=== PATIENT | female | born 1930 | race Caucasian/White ===

== ENCOUNTER 2017-01-30 20:04 | Outpatient (CLI) | payer MEDICARE | END 2017-01-30 20:05 | disposition critical access hospital (66) | DX: R25.1 Tremor, unspecified (principal) | CPT/HCPCS: A0425; A0429 ==

== ENCOUNTER 2017-01-30 20:36 | Emergency (ER) | payer MEDICARE ==
--- NOTE | 2017-01-30 20:59 | ED Physician Documentation ---
History of Present Illness - Stated complaint Stated Complaint: TREMORS - Chief complaint Chief Complaint: General - History obtained from History obtained from: Patient, EMS - History of Present Illness Timing: Other (4 months) Pain level max: 0 Pain level now: 0 Improved by: nothing Worsened by: nothing - Additonal information Additional information: Patient is an 86-year-old female who presents to the emergency department complaining of tremors to the bilateral hands for the past 4 months. States she has not seen her doctor or discuss this with her doctor. She states that the tremors felt worse today. She has also noticed tremors intermittently in her face. No difficulty walking. No falling. No recent medication changes. No pain. Review of Systems Constitutional: denies: Fever, Chills Eyes: denies: Decreased vision, Photophobia Nose: denies: Rhinorrhea / runny nose, Congestion Throat: denies: Sore throat Cardiac: denies: Chest pain / pressure, Palpitations Respiratory: denies: Dyspnea, Cough GI: denies: Abdominal Pain, Nausea, Vomiting, Diarrhea : denies: Dysuria, Frequency, Hesitancy Skin: denies: Rash Musculoskeletal: denies: Neck pain, Back pain Neurologic: denies: Focal weakness, Numbness, Confused, Altered mental status, Headache PD PAST MEDICAL HISTORY - Past Medical History Past Medical History: Yes Cardiovascular: Hypertension, Other Respiratory: COPD Neuro: None Endocrine/Autoimmune: None GI: Diverticulitis MEDIA ASSISTANT: None : Retention HEENT: None Psych: Depression Musculoskeletal: Osteoarthritis Derm: None - Past Surgical History Past Surgical History: Yes General: Appendectomy Ortho: Other /MEDIA ASSISTANT: Hysterectomy HEENT: Tonsil/Adenoidectomy - Present Medications Home Medications: Ambulatory Orders Medication Instructions Recorded Confirmed Atorvastatin [Lipitor] 20 mg PO DAILY 11/10/14 01/30/17 Cranberry 500 mg PO BID 11/10/14 01/30/17 Docusate Sodium 100 mg PO DAILY #20 capsule 11/10/14 01/30/17 Escitalopram [Lexapro] 10 mg PO DAILY 11/10/14 01/30/17 Flaxseed Oil [Flax Seed Oil] 1,300 mg PO DAILY 11/10/14 01/30/17 Glucosamine Sulfate Dipot Chlr 500 mg PO TID 11/10/14 01/30/17 [Glucosamine] Magnesium 500 mg PO DAILY 11/10/14 01/30/17 Niacin 500 mg PO BID 11/10/14 01/30/17 [place]-3 Fatty Acids [Fish Oil] 1,000 mg PO BID 11/10/14 01/30/17 Omeprazole [PriLOSEC] 20 mg PO DAILY 11/10/14 01/30/17 Bethanechol [Urecholine] 25 mg PO QID 02/04/15 01/30/17 Cholecalciferol (Vitamin D3) 1 tab ORAL DAILY 02/04/15 01/30/17 [Vitamin D-400] Cyclobenzaprine [Flexeril] 5 mg PO TID PRN 02/04/15 01/30/17 Diazepam [Valium] 2 mg PO ONCE PRN 02/04/15 01/30/17 HYDROcod/ACETAM 5/325 [Vicodin 1 each PO Q6HR 02/04/15 01/30/17 5/325] Multivit-Min/FA/Lycopene/Lut 1 each PO DAILY 02/04/15 01/30/17 [Centrum Silver Tablet] Saccharomyces Boulardii [Florastor] 250 mg PO BID 02/04/15 01/30/17 Verapamil [Calan] 180 mg PO DAILY 03/09/15 01/30/17 Doxepin HCl 10 mg PO DAILY 09/22/16 01/30/17 Nitroglycerin [Nitrostat] 0.4 mg PO Q5MIN PRN 09/22/16 01/30/17 Verapamil HCl 40 mg PO DAILY 09/22/16 01/30/17 Omeprazole [PriLOSEC] 1 cap PO DAILY 01/30/17 01/30/17 Saccharomyces Boulardii [Florastor] 1 cap PO BID 01/30/17 01/30/17 - Allergies Allergies/Adverse Reactions: Allergies Allergy/AdvReac Type Severity Reaction Status Date / Time Sulfa (Sulfonamide Allergy Severe Anaphylaxis Verified 01/30/17 20:47 Antibiotics) clarithromycin Allergy Unknown Verified 01/30/17 20:47 codeine Allergy Nausea Verified 01/30/17 20:47 levofloxacin Allergy Unknown Verified 01/30/17 20:47 phenazopyridine HCl * Allergy Unknown Verified 01/30/17 20:47 [From Pyridium] - Social History Does the pt smoke?: No Smoking Status: Never smoker Does the pt drink ETOH?: No Does the pt have substance abuse?: No - Immunizations Immunizations are current?: Yes - POLST Patient has POLST: No PD ED PE NORMAL - Vitals Vital signs reviewed: Yes - General General: Alert and oriented X 3, No acute distress, Well developed/nourished - HEENT HEENT: PERRL, Moist mucous membranes - Neck Neck: Supple, no meningeal sign - Cardiac Cardiac: RRR, Strong equal pulses - Respiratory Respiratory: No respiratory distress, Clear bilaterally - Abdomen Abdomen: Soft, Non tender, Non distended - Derm Derm: Warm and dry - Extremities Extremities: No edema - Neuro Neuro: Alert and oriented X 3, fire medic 2-12 intact, No motor deficit, No sensory deficit, Normal speech, Other (Slight resting tremor to the bilateral hands. Also a slight tremor to the face. Normal cerebellar test. Normal gait. Walks without assistance) - Psych Psych: Normal mood, Normal affect Results - Vitals Vitals: Vital Signs - 24 hr 01/30/17 01/30/17 01/30/17 20:37 21:20 21:37 Temperature 36.2 C L Heart Rate 92 84 80 Respiratory 18 16 16 Rate Blood Pressure 216/79 H 189/78 H 185/71 H O2 Saturation 95 96 94 Oxygen O2 Source [With Activity] Room air O2 Source Room air - Labs Labs: Laboratory Tests 01/30/17 01/30/17 21:00 21:00 WBC 6.0 RBC 4.79 Hgb 14.7 Hct 44.1 MCV 92.2 MCH 30.7 MCHC 33.2 RDW 14.5 Plt Count 165 MPV 8.6 Neut # 3.6 Lymph # 1.3 L [place] # 0.9 Eos # 0.1 Baso # 0.1 Absolute Nucleated RBC 0.00 Nucleated RBCs 0.0 Sodium 140 Potassium 3.8 Chloride 99 L Carbon Dioxide 29 Anion Gap 12.0 BUN 20 Creatinine 0.9 Estimated GFR (MDRD) 59 L Glucose 124 H Calcium 9.1 Phosphorus 3.4 Magnesium 2.4 Total Bilirubin 0.5 AST 38 ALT 27 Alkaline Phosphatase 102 Total Protein 7.6 Albumin 4.4 Globulin 3.2 Albumin/Globulin Ratio 1.4 Lipase 43 PD MEDICAL DECISION MAKING - ED course Complexity details: reviewed results, re-evaluated patient, considered differential, d/w patient ED course: Patient is an 86-year-old female who presents to the emergency department with increasing tremors over the past 4 months. The tremor is mild here. No acute laboratory abnormalities. She does also have hypertension for which she takes verapamil. She states that she normally will take an extra verapamil when her blood pressure is over 200, therefore an extra dose of verapamil was given to her here. Etiology of her tremors is unclear, though she does appear to need further neurological workup. Will refer her back to her primary care provider for this. Patient counseled regarding signs and symptoms for which I believe and urgent re-evaluation would be necessary. Patient with good understanding of and agreement to plan and is comfortable going home at this time This document was made in part using voice recognition software. While efforts are made to proofread this document, sound alike and grammatical errors may occur. Departure - Departure Disposition: 01 Home, Self Care Clinical Impression: Tremor Condition: Good Instructions: Essential Tremor ET Follow-Up: JM BARTON [Primary Care Provider] - Within 1 week Comments: The cause of your tremors is unclear tonight. You will need further testing than can performed in the emergency department. Follow up with your doctor for this. Your blood pressure was elevated today on check in to the emergency department. This does not mean that you have hypertension, it is a common phenomenon to check into the emergency department and have elevated blood pressure. I recommend that you see your primary care physician within the week to have it rechecked when you're feeling better. Discharge Date/Time: 01/30/17 20:50
[2017-01-30 21:16] LABS: BASOPHILS # (AUTO) 0.1 10^3/uL (0.0-0.1); EOSINOPHILS # (AUTO) 0.1 10^3/uL (0.0-0.7); EOSINOPHILS % (AUTO) 2.4 %; HCT - HEMATOCRIT 44.1 % (37.0-47.0); HGB - HEMOGLOBIN 14.7 g/dL (12.0-16.0); LYMPHOCYTES # (AUTO) 1.3 10^3/uL (1.5-3.5); LYMPHOCYTES % (AUTO) 21.3 %; MEAN CORPUSCULAR HEMOGLOBIN 30.7 pg (27.0-31.0); MEAN CORPUSCULAR HGB CONC 33.2 g/dL (32.0-36.0); MEAN CORPUSCULAR VOLUME 92.2 fL (81.0-99.0); MEAN PLATELET VOLUME 8.6 fL (7.9-10.8); MONOCYTES # (AUTO) 0.9 10^3/uL (0.0-1.0); MONOCYTES % (AUTO) 14.4 %; NEUTROPHILS # (AUTO) 3.6 10^3/uL (1.5-6.6); NEUTROPHILS % (AUTO) 60.9 %; RED BLOOD COUNT 4.79 10^6/uL (4.20-5.40); RED CELL DISTRIBUTION WIDTH 14.5 % (12.0-15.0)
[2017-01-30] MEDS: VERAPAMIL 80 MG TABLET PO STA (21:25)
[2017-01-30 21:33] LABS: ALBUMIN/GLOBULIN RATIO 1.4 (1.0-2.2); BILIRUBIN,TOTAL 0.5 mg/dL (0.2-1.0); CALCIUM 9.1 mg/dL (8.5-10.3); CREATININE 0.9 mg/dL (0.4-1.0); MAGNESIUM 2.4 mg/dL (1.7-2.8); PHOSPHORUS 3.4 mg/dL (2.5-4.6); POTASSIUM 3.8 mmol/L (3.5-5.0); TOTAL PROTEIN 7.6 g/dL (6.7-8.2)
[2017-01-30 21:38] VITALS: BP 185/71
== END 2017-01-30 20:50 | disposition home or self-care (01) ==
LOC: EDUNIT# → ED 20:36
DX: R25.1 Tremor, unspecified (principal); I10 Essential (primary) hypertension; J44.9 Chronic obstructive pulmonary disease, unspecified; M19.90 Unspecified osteoarthritis, unspecified site; Z87.19 Personal history of other diseases of the digestive system
CPT/HCPCS: 80053; 83690; 83735; 84100; 85025; 99283; 99284

== ENCOUNTER 2017-04-01 15:12 | Outpatient (CLI) | payer MEDICARE ==
--- NOTE | 2017-04-01 17:07 | XRAY Report ---
FOUR VIEW RIGHT KNEE: 04/01/2017 CLINICAL INDICATION: Pain. FINDINGS: AP, lateral, and bilateral oblique views of the right knee demonstrate moderate osteoarthr itis, with chondrocalcinosis. A moderate effusion is present. Multiple ossified bodies are noted in t he suprapatellar bursa and posterior joint space. IMPRESSION: MODERATE OSTEOARTHRITIS, WITH A LARGE JOINT EFFUSION. NO EVIDENCE OF ACUTE FRACTURE. JOB #: [id number] EXT JOB #:[id number]
== END 2017-04-01 15:13 | disposition home or self-care (01) ==
LOC: DI.S 15:12
PROVIDERS: ATTEND Specialist
DX: M17.11 Unilateral primary osteoarthritis, right knee (principal); M25.461 Effusion, right knee

== ENCOUNTER 2017-04-06 14:17 | Outpatient (CLI) | payer MEDICARE ==
--- NOTE | 2017-04-07 10:31 | CT Report ---
CT BRAIN WITHOUT CONTRAST: 04/06/2017 CLINICAL INDICATION: Headache, tremor. TECHNIQUE: Axial CT images of the brain were obtained without intravenous contrast. No previous CT is available for comparison. In accordance with CT protocol optimization, one or more of the following dose reduction techniques w ere utilized for this exam: automated exposure control, adjustment of mA and/or KV based on patient size, or use of iterative reconstructive technique. FINDINGS: The ventricles and sulci demonstrate mild symmetric enlargement, compatible with atrophy. The basilar cisterns are patent. Chronic ischemic changes are seen in the periventricular white mat ter structures. There is no evidence of hemorrhage, mass effect, or midline shift. The visualized o rbital contents and paranasal sinuses are unremarkable. IMPRESSION: ATROPHY AND CHRONIC ISCHEMIC CHANGES. NO EVIDENCE OF ACUTE HEMORRHAGE OR MASS EFFECT. JOB #: [id number] EXT JOB #:[id number]
== END 2017-04-06 14:18 | disposition home or self-care (01) ==
LOC: DI 14:17
PROVIDERS: ATTEND Nurse Practitioner Family
DX: G31.9 Degenerative disease of nervous system, unspecified (principal); I67.82 Cerebral ischemia
CPT/HCPCS: 70450

== ENCOUNTER 2017-04-14 01:57 | Outpatient (CLI) | payer MEDICARE | END 2017-04-14 01:58 | disposition critical access hospital (66) | LOC: EMS 01:57 | PROVIDERS: ATTEND Surgery | DX: R25.1 Tremor, unspecified (principal) | CPT/HCPCS: A0425; A0428 ==

== ENCOUNTER 2017-04-14 02:56 | Emergency (ER) | payer MEDICARE ==
[2017-04-14] MEDS ORDERED: ALPRAZolam 0.25 MG TABLET PO STA (03:18)
[2017-04-14] MEDS ORDERED: ALPRAZolam 0.25 MG TABLET PO ONE (03:23)
[2017-04-14 03:46] LABS: BILIRUBIN,URINE NEGATIVE (NEGATIVE)
[2017-04-14 03:48] LABS: BASOPHILS % (AUTO) 0.7 %; EOSINOPHILS # (AUTO) 0.2 10^3/uL (0.0-0.7); EOSINOPHILS % (AUTO) 2.7 %; HCT - HEMATOCRIT 42.1 % (37.0-47.0); HGB - HEMOGLOBIN 14.7 g/dL (12.0-16.0); LYMPHOCYTES # (AUTO) 1.7 10^3/uL (1.5-3.5); LYMPHOCYTES % (AUTO) 24.8 %; MEAN CORPUSCULAR HEMOGLOBIN 31.8 pg (27.0-31.0); MEAN CORPUSCULAR HGB CONC 34.8 g/dL (32.0-36.0); MEAN CORPUSCULAR VOLUME 91.4 fL (81.0-99.0); MEAN PLATELET VOLUME 7.8 fL (7.9-10.8); MONOCYTES # (AUTO) 0.9 10^3/uL (0.0-1.0); MONOCYTES % (AUTO) 13.2 %; NEUTROPHILS # (AUTO) 3.9 10^3/uL (1.5-6.6); NEUTROPHILS % (AUTO) 58.6 %; RED BLOOD COUNT 4.61 10^6/uL (4.20-5.40); RED CELL DISTRIBUTION WIDTH 13.7 % (12.0-15.0); UNCORRECTED WHITE BLOOD COUNT 6.7 x10^3/uL; WHITE BLOOD COUNT 6.7 x10^3/uL (4.8-10.8)
[2017-04-14 03:48] LABS: UA CHARGE (STRIP ONLY) YES; UR CULTURE IF IND NOT INDICATED
--- NOTE | 2017-04-14 03:54 | ED Physician Documentation ---
History of Present Illness - Stated complaint Stated Complaint: TREMORS - Chief complaint Chief Complaint: General - History obtained from History obtained from: Patient - Additonal information Additional information: Patient is a 87-year-old female with a history of anxiety, depression, COPD, hypertension and tremors. She has had the tremors for many months and was recently put on gabapentin 300 mg 3 times daily. She believes she forgot her gabapentin in the morning but was reticent to take an extra dose because she was unsure. She woke up this evening with a complaint of feeling of anxiousness and shaking all throughout her body. She denies any chest pain or shortness of breath. There is no nausea, vomiting, constipation or diarrhea. She is on Lexapro for her anxiety and depression and was on Valium at some point in the past. Review of systems: For pertinent positive and negatives in the review of systems please see history of present illness. Otherwise all other systems have been reviewed and are negative. Dragon disclaimer: Parts of this medical record were created using voice recognition technology. Because of the inherent limitations of this system occasional same sounding word substitutions do occur and persist despite proofreading. Please read the document for context. Review of Systems Constitutional: denies: Fever, Chills, Myalgias Eyes: denies: Loss of vision Ears: denies: Tinnitus/ringing Cardiac: denies: Pedal edema Respiratory: denies: Dyspnea, Cough, Hemoptysis, Wheezing GI: denies: Abdominal Pain, Nausea, Vomiting Musculoskeletal: denies: Neck pain, Back pain, Extremity pain Neurologic: denies: Generalized weakness, Focal weakness Psychiatric: reports: Anxiety. denies: Depressed, Suicidal, Homicidal PD PAST MEDICAL HISTORY - Past Medical History Cardiovascular: Hypertension, Other Respiratory: COPD Neuro: None Endocrine/Autoimmune: None GI: Diverticulitis HOB GRINDER: None : Retention HEENT: None Psych: Depression Musculoskeletal: Osteoarthritis Derm: None - Past Surgical History Past Surgical History: Yes General: Appendectomy Ortho: Other /HOB GRINDER: Hysterectomy HEENT: Tonsil/Adenoidectomy - Present Medications Home Medications: Ambulatory Orders Medication Instructions Recorded Confirmed Atorvastatin [Lipitor] 20 mg PO DAILY 11/10/14 01/30/17 Cranberry 500 mg PO BID 11/10/14 01/30/17 Docusate Sodium 100 mg PO DAILY #20 capsule 11/10/14 01/30/17 Escitalopram [Lexapro] 10 mg PO DAILY 11/10/14 01/30/17 Flaxseed Oil [Flax Seed Oil] 1,300 mg PO DAILY 11/10/14 01/30/17 Glucosamine Sulfate Dipot Chlr 500 mg PO TID 11/10/14 01/30/17 [Glucosamine] Magnesium 500 mg PO DAILY 11/10/14 01/30/17 Niacin 500 mg PO BID 11/10/14 01/30/17 [place]-3 Fatty Acids [Fish Oil] 1,000 mg PO BID 11/10/14 01/30/17 Omeprazole [PriLOSEC] 20 mg PO DAILY 11/10/14 01/30/17 Bethanechol [Urecholine] 25 mg PO QID 02/04/15 01/30/17 Cholecalciferol (Vitamin D3) 1 tab ORAL DAILY 02/04/15 01/30/17 [Vitamin D-400] Cyclobenzaprine [Flexeril] 5 mg PO TID PRN 02/04/15 01/30/17 Diazepam [Valium] 2 mg PO ONCE PRN 02/04/15 01/30/17 HYDROcod/ACETAM 5/325 [Vicodin 1 each PO Q6HR 02/04/15 01/30/17 5/325] Multivit-Min/FA/Lycopene/Lut 1 each PO DAILY 02/04/15 01/30/17 [Centrum Silver Tablet] Saccharomyces Boulardii [Florastor] 250 mg PO BID 02/04/15 01/30/17 Verapamil [Calan] 180 mg PO DAILY 03/09/15 01/30/17 Doxepin HCl 10 mg PO DAILY 09/22/16 01/30/17 Nitroglycerin [Nitrostat] 0.4 mg PO Q5MIN PRN 09/22/16 01/30/17 Verapamil HCl 40 mg PO DAILY 09/22/16 01/30/17 Omeprazole [PriLOSEC] 1 cap PO DAILY 01/30/17 01/30/17 Saccharomyces Boulardii [Florastor] 1 cap PO BID 01/30/17 01/30/17 Alprazolam [Xanax] 0.25 mg PO TID PRN #10 tablet 04/14/17 Gabapentin 1 tab PO TID 04/14/17 04/14/17 - Allergies Allergies/Adverse Reactions: Allergies Allergy/AdvReac Type Severity Reaction Status Date / Time Sulfa (Sulfonamide Allergy Severe Anaphylaxis Verified 04/14/17 03:04 Antibiotics) clarithromycin Allergy Unknown Verified 04/14/17 03:04 codeine Allergy Nausea Verified 04/14/17 03:04 levofloxacin Allergy Unknown Verified 04/14/17 03:04 phenazopyridine HCl * Allergy Unknown Verified 04/14/17 03:04 [From Pyridium] - Social History Does the pt smoke?: No Smoking Status: Never smoker Does the pt drink ETOH?: No Does the pt have substance abuse?: No - Immunizations Immunizations are current?: Yes - POLST Patient has POLST: No PD ED PE NORMAL - General General: Alert and oriented X 3 (Very anxious appearing tremulous elderly female in no apparent distress), No acute distress, Other - HEENT HEENT: Atraumatic - Neck Neck: Supple, no meningeal sign - Cardiac Cardiac: RRR, No murmur, No gallop - Respiratory Respiratory: No respiratory distress, Clear bilaterally - Abdomen Abdomen: Normal bowel sounds, Non tender, Non distended - Derm Derm: Normal color, Warm and dry - Extremities Extremities: No deformity, No tenderness to palpate, Normal ROM s pain Results - Vitals Vitals: Vital Signs - 24 hr 04/14/17 03:02 Temperature 98 C H Heart Rate 86 Respiratory 16 Rate Blood Pressure 216/89 H O2 Saturation 95 Oxygen O2 Source [With Activity] Room air O2 Source Room air - Labs Labs: Laboratory Tests 04/14/17 04/14/17 04/14/17 03:35 03:39 03:39 WBC 6.7 RBC 4.61 Hgb 14.7 Hct 42.1 MCV 91.4 MCH 31.8 H MCHC 34.8 RDW 13.7 Plt Count 157 MPV 7.8 L Neut # 3.9 Lymph # 1.7 [place] # 0.9 Eos # 0.2 Baso # 0.0 Absolute Nucleated RBC 0.00 Nucleated RBCs 0.0 Sodium 139 Potassium 4.2 Chloride 104 Carbon Dioxide 27 Anion Gap 8.0 BUN 20 Creatinine 0.9 Estimated GFR (MDRD) 59 L Glucose 115 H Calcium 9.1 Total Bilirubin 0.5 AST 35 ALT 30 Alkaline Phosphatase 98 Total Protein 7.2 Albumin 4.2 Globulin 3.0 Albumin/Globulin Ratio 1.4 Lipase 59 H Urine Color YELLOW Urine Clarity CLEAR Urine pH 7.0 Ur Specific [place] 1.010 Urine Protein NEGATIVE Urine Glucose (UA) NEGATIVE Urine Ketones NEGATIVE Urine Occult Blood NEGATIVE Urine Nitrite NEGATIVE Urine Bilirubin NEGATIVE Urine Urobilinogen 0.2 (NORMAL) Ur Leukocyte Esterase NEGATIVE Ur Microscopic Review NOT INDICATED Urine Culture Comments NOT INDICATED PD MEDICAL DECISION MAKING - ED course ED course: Patient is a 87-year-old female with a history of anxiety, depression and tremors who was started on gabapentin a couple months ago. She missed her morning dose and was reticent to take another because she could not quite be sure. She woke up early this morning with a complaint of feeling of anxiety and shakes all over her body. Here the patient appeared very anxious. There is no fever anything infectious by history. On examination she is anxious older woman in no apparent distress. We did do blood testing and urinalysis and the studies are normal. She is given a small dose of Xanax and she improved significantly with a decrease in her blood pressure and pulse rate. At this point in time she looks great her symptoms have largely resolved and I will discharge her to home. I will write for a very small amount of Xanax. Disposition: To home Clinical impression: 1. Acute panic attack 2. History of tremors 3. Hypertension and COPD- stable Departure - Departure Disposition: 01 Home, Self Care Clinical Impression: Anxiety about health Condition: Good Instructions: ED Panic Attack Follow-Up: JM BARTON [Primary Care Provider] - Prescriptions: Alprazolam [Xanax] 0.25 mg PO TID PRN #10 tablet PRN Reason: Anxiety
[2017-04-14 03:57] LABS: ALBUMIN/GLOBULIN RATIO 1.4 (1.0-2.2); BILIRUBIN,TOTAL 0.5 mg/dL (0.2-1.0); CALCIUM 9.1 mg/dL (8.5-10.3); CREATININE 0.9 mg/dL (0.4-1.0); POTASSIUM 4.2 mmol/L (3.5-5.0); TOTAL PROTEIN 7.2 g/dL (6.7-8.2)
[2017-04-14 04:52] VITALS: BP 170/85
== END 2017-04-14 04:52 | disposition home or self-care (01) ==
LOC: EDUNIT# → ED 02:56 → SUPCPDRO 02:56 → ED 04:52
DX: F41.9 Anxiety disorder, unspecified (principal); I10 Essential (primary) hypertension; J44.9 Chronic obstructive pulmonary disease, unspecified
CPT/HCPCS: 36415; 80053; 81003; 83690; 85025; 99283; A9270; 81001; 87086

== ENCOUNTER 2017-04-16 12:50 | Outpatient (CLI) | payer MEDICARE | END 2017-04-16 12:51 | disposition home or self-care (01) | LOC: RT 12:50 | PROVIDERS: ATTEND Internal Medicine Cardiovascular Disease | DX: R00.2 Palpitations (principal); I10 Essential (primary) hypertension | CPT/HCPCS: 93005 ==

== ENCOUNTER 2017-04-24 12:59 | Outpatient (CLI) | payer MEDICARE ==
--- NOTE | 2017-04-27 08:30 | DEXA Report ---
DEXA SCAN: 04/24/2017 CLINICAL INDICATION: Postmenopausal. TECHNIQUE: Dual energy x-ray absorptiometry (DXA) was performed on a opvizor system. Regions measured are the AP spine, femoral neck, and, if needed, forearm. COMPARISON: None. In accordance with the International Society for Clinical Densitometry (ISCD) guidelines, data from previous exams may be reanalyzed using current recommendations and techniques. This is done to allow a more accurate basis for comparison with the current study. FINDINGS: The data for the lumbar spine is as follows: REGION BMD (g/cm/cm) T-SCORE Z-SCORE L1 1.227 0.8 2.8 L2 1.373 1.4 3.4 L3 1.252 0.4 2.4 L4 1.451 2.1 4.1 TOTAL 1.329 1.2 3.2 NOTE: All evaluable vertebrae are used for classification. The data for the hip is as follows: REGION BMD (g/cm/cm) T-SCORE Z-SCORE Neck 0.948 -0.6 1.9 TOTAL 0.996 -0.1 2.3 NOTE: The femoral neck or total proximal femur, whichever is lowest, is used for classification. IMPRESSION: THE WHO CLASSIFICATION BASED ON THE INTERNATIONAL REFERENCE STANDARD IS NORMAL. THE FRACTURE RISK IS NOT INCREASED. RECOMMENDATION: Patients with diagnosis of osteoporosis or osteopenia should have regular bone mineral density assessment. For those eligible for Medicare, routine testing is allowed once every 2 years. Testing frequency can be increased for patients who have rapidly progressing disease or for those who are receiving medical therapy to restore bone mass. COMMENT: World Health Organization (WHO) definitions for osteoporosis and osteopenia: NORMAL BMD: T-score at -1.0 or higher, fracture risk is low. OSTEOPENIA BMD: T-score between -1.0 and -2.5, fracture risk is increased. OSTEOPOROSIS BMD: T-score at -2.5 or lower, fracture risk high. National Osteoporosis Foundation recommends: 1. Obtain adequate dietary calcium (at least 1200 mg per day) and vitamin D (400 -800 international units per day). 2. Participate, as appropriate, in regular weightbearing and muscle- strengthening exercise. 3. Avoid tobacco use and reduce alcohol and caffeine intake. 4. For more detailed information see the website at www.NOF.org. MTDD
== END 2017-04-24 13:00 | disposition home or self-care (01) ==
LOC: DI 12:59
PROVIDERS: ATTEND Specialist
DX: Z13.820 Encounter for screening for osteoporosis (principal); Z78.0 Asymptomatic menopausal state; I10 Essential (primary) hypertension
CPT/HCPCS: 36415; 77080; 80053; 82270; 85025

== ENCOUNTER 2017-04-24 13:07 | Outpatient (CLI) | payer MEDICARE ==
--- NOTE | 2017-04-27 15:26 | Mammography Report ---
DIGITAL SCREENING MAMMOGRAM: 04/24/2017 CLINICAL INDICATION: An 87-year-old nulliparous patient for screening. COMPARISON: 11/2013, 05/2010, 09/2008, 07/2007 TECHNIQUE: Routine CC and MLO projections were obtained of the breasts. FINDINGS: Parenchymal tissue within both breasts is heterogeneously dense, which may lower the sensi tivity of mammography; however, there are no dominant masses, suspicious microcalcifications, or seco ndary signs of malignancy. In comparison to the previous studies, there are no significant changes. ASSESSMENT: NO MAMMOGRAPHIC EVIDENCE OF MALIGNANCY. NO SIGNIFICANT INTERVAL CHANGES. RECOMMENDATION: Screening mammography is recommended annually. BIRADS category 1 - negative. STANDARD QUALIFYING STATEMENTS 1. This examination was reviewed with the aid of Computed-Aided Detection (CAD). 2. A negative or benign imaging report should not delay biopsy if clinically suspicious findings are present. Consider surgical consultation if warranted. More than 5% of cancers are not identified by i maging. 3. Dense breasts may obscure an underlying neoplasm. 15:9:48 JOB #: [id number] EXT JOB #:[id number]
== END 2017-04-24 13:08 | disposition home or self-care (01) ==
LOC: DI 13:07
PROVIDERS: ATTEND Specialist
DX: Z12.31 Encounter for screening mammogram for malignant neoplasm of breast (principal); Z80.3 Family history of malignant neoplasm of breast
CPT/HCPCS: 77067

== ENCOUNTER 2017-04-24 14:15 | Outpatient (CLI) | payer MEDICARE ==
[2017-04-24 15:12] LABS: BASOPHILS % (AUTO) 0.8 %; EOSINOPHILS # (AUTO) 0.1 10^3/uL (0.0-0.7); EOSINOPHILS % (AUTO) 2.2 %; HCT - HEMATOCRIT 41.2 % (37.0-47.0); HGB - HEMOGLOBIN 14.1 g/dL (12.0-16.0); LYMPHOCYTES # (AUTO) 1.1 10^3/uL (1.5-3.5); LYMPHOCYTES % (AUTO) 20.5 %; MEAN CORPUSCULAR HEMOGLOBIN 31.4 pg (27.0-31.0); MEAN CORPUSCULAR HGB CONC 34.3 g/dL (32.0-36.0); MEAN CORPUSCULAR VOLUME 91.5 fL (81.0-99.0); MEAN PLATELET VOLUME 8.4 fL (7.9-10.8); MONOCYTES # (AUTO) 0.6 10^3/uL (0.0-1.0); MONOCYTES % (AUTO) 12.5 %; NEUTROPHILS # (AUTO) 3.3 10^3/uL (1.5-6.6); NUCLEATED RED BLOOD CELLS AUTO 0.1 /100WBC; RED CELL DISTRIBUTION WIDTH 13.7 % (12.0-15.0); UNCORRECTED WHITE BLOOD COUNT 5.2 x10^3/uL; WHITE BLOOD COUNT 5.2 x10^3/uL (4.8-10.8)
[2017-04-24 15:31] LABS: ALBUMIN/GLOBULIN RATIO 1.4 (1.0-2.2); BILIRUBIN,TOTAL 0.8 mg/dL (0.2-1.0); CALCIUM 9.1 mg/dL (8.5-10.3); CREATININE 0.9 mg/dL (0.4-1.0); POTASSIUM 4.2 mmol/L (3.5-5.0)
== END 2017-04-24 14:16 | disposition home or self-care (01) ==
LOC: LAB 14:15
PROVIDERS: ATTEND Specialist
DX: Z12.11 Encounter for screening for malignant neoplasm of colon (principal); I10 Essential (primary) hypertension
CPT/HCPCS: 36415; 80053; 82270; 85025

== ENCOUNTER 2017-04-28 15:20 | Outpatient (CLI) | payer MEDICARE ==
[2017-04-28 19:29] LABS: CALCIUM 9.2 mg/dL (8.5-10.3); CREATININE 0.9 mg/dL (0.4-1.0); MAGNESIUM 2.3 mg/dL (1.7-2.8); POTASSIUM 3.7 mmol/L (3.5-5.0)
== END 2017-04-28 15:21 | disposition home or self-care (01) ==
LOC: LAB.F 15:20
PROVIDERS: ATTEND Internal Medicine Cardiovascular Disease
DX: I49.1 Atrial premature depolarization (principal); I47.1 Supraventricular tachycardia; I10 Essential (primary) hypertension
CPT/HCPCS: 36415; 80048; 83735

== ENCOUNTER 2017-05-20 20:13 | Outpatient (CLI) | payer MEDICARE | END 2017-05-20 20:14 | disposition EMS.NT | LOC: EMS 20:13 | PROVIDERS: ATTEND Surgery | DX: I10 Essential (primary) hypertension (principal) ==

== ENCOUNTER 2017-05-21 20:00 | Outpatient (CLI) | payer MEDICARE | END 2017-05-21 20:01 | disposition critical access hospital (66) | LOC: EMS 20:00 | PROVIDERS: ATTEND Surgery | DX: I10 Essential (primary) hypertension (principal) | CPT/HCPCS: A0425; A0429 ==

== ENCOUNTER 2017-05-21 20:41 | Emergency (ER) | payer MEDICARE ==
--- NOTE | 2017-05-21 20:57 | ED Physician Documentation ---
History of Present Illness - Stated complaint Stated Complaint: HTN - Chief complaint Chief Complaint: Cardiac - History obtained from History obtained from: Patient - History of Present Illness Timing: Other (87-year-old woman with history of hypertension for which she takes verapamil and lisinopril. Over the last several days she has been checking her blood pressures frequently and over the course of the day her blood pressure climbs after the first reading. She says that her usual blood pressure is in the range of 140/80. This is associated with a mild subacute left-sided headache for which she had a CT last month with which without acute finding.) Review of Systems Constitutional: denies: Fever, Chills Cardiac: denies: Chest pain / pressure, Palpitations Respiratory: denies: Dyspnea, Cough GI: denies: Abdominal Pain, Nausea, Vomiting : reports: Frequency. 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 HEENT: None Psych: Depression Musculoskeletal: Osteoarthritis Derm: None - Past Surgical History Past Surgical History: Yes General: Appendectomy Ortho: Other /STORE OPERATIONS ASSOCIATE: Hysterectomy HEENT: Tonsil/Adenoidectomy - Present Medications Home Medications: Ambulatory Orders Medication Instructions Recorded Confirmed Atorvastatin [Lipitor] 20 mg PO DAILY 11/10/14 05/21/17 Cranberry 500 mg PO BID 11/10/14 05/21/17 Escitalopram [Lexapro] 10 mg PO DAILY 11/10/14 05/21/17 Glucosamine Sulfate Dipot Chlr 500 mg PO TID 11/10/14 05/21/17 [Glucosamine] Magnesium 500 mg PO DAILY 11/10/14 05/21/17 Niacin 500 mg PO BID 11/10/14 05/21/17 [place]-3 Fatty Acids [Fish Oil] 1,000 mg PO BID 11/10/14 05/21/17 Cholecalciferol (Vitamin D3) 1 tab ORAL DAILY 02/04/15 05/21/17 [Vitamin D-400] Multivit-Min/FA/Lycopene/Lut 1 each PO DAILY 02/04/15 05/21/17 [Centrum Silver Tablet] Verapamil [Calan] 180 mg PO DAILY 03/09/15 05/21/17 Verapamil HCl 40 mg PO DAILY 09/22/16 05/21/17 Saccharomyces Boulardii [Florastor] 1 cap PO BID 01/30/17 05/21/17 Aspirin 81 mg ORAL DAILY 05/21/17 05/21/17 cloNIDine [Catapres] 0.2 mg PO TID #90 tablet 05/21/17 - Allergies Allergies/Adverse Reactions: Allergies Allergy/AdvReac Type Severity Reaction Status Date / Time Sulfa (Sulfonamide Allergy Severe Anaphylaxis Verified 05/21/17 20:45 Antibiotics) clarithromycin Allergy Unknown Verified 05/21/17 20:45 codeine Allergy Nausea Verified 05/21/17 20:45 levofloxacin Allergy Unknown Verified 05/21/17 20:45 phenazopyridine HCl * Allergy Unknown Verified 05/21/17 20:45 [From Pyridium] - Social History Does the pt smoke?: No Smoking Status: Never smoker Does the pt drink ETOH?: No Does the pt have substance abuse?: No - Immunizations Immunizations are current?: Yes - POLST Patient has POLST: No PD ED PE NORMAL - Vitals Vital signs reviewed: Yes - General General: Alert and oriented X 3, No acute distress - HEENT HEENT: Other (No temporal artery tenderness) - Neck Neck: Supple, no meningeal sign, No bony TTP - Cardiac Cardiac: RRR, No murmur - Respiratory Respiratory: No respiratory distress, Clear bilaterally - Abdomen Abdomen: Non tender - Extremities Extremities: No edema, No calf tenderness / cord - Neuro Neuro: Alert and oriented X 3, 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, No motor deficit, No sensory deficit, Normal speech - Psych Psych: Normal mood, Normal affect Results - Vitals Vitals: Vital Signs - 24 hr 05/21/17 05/21/17 05/21/17 20:41 21:05 21:42 Temperature 36.1 C L Heart Rate 77 79 71 Respiratory 18 18 Rate Blood Pressure 229/88 H 196/83 H 192/75 H O2 Saturation 95 98 Oxygen O2 Source [] Room air O2 Source Room air - EKG (time done) 2056 Rate: Rate (enter#) (74) Rhythm: NSR [place]: Normal Intervals: Normal GA QRS: Normal Ischemia: Q waves (III, V1-3) Computer interpretation: Agree with computer - Labs Labs: Laboratory Tests 05/21/17 05/21/17 05/21/17 20:18 21:08 21:08 Sodium 141 Potassium 3.4 L Chloride 105 Carbon Dioxide 30 Anion Gap 6.0 BUN 14 Creatinine 0.7 Estimated GFR (MDRD) 79 L Glucose 110 H Calcium 9.0 Troponin I < 0.04 Urine Color LIGHT YELLOW Urine Clarity CLEAR Urine pH 7.5 Ur Specific [place] 1.010 Urine Protein NEGATIVE Urine Glucose (UA) NEGATIVE Urine Ketones NEGATIVE Urine Occult Blood TRACE-INTA Urine Nitrite NEGATIVE Urine Bilirubin NEGATIVE Urine Urobilinogen 0.2 (NORMAL) Ur Leukocyte Esterase NEGATIVE Ur Microscopic Review NOT INDICATED Urine Culture Comments NOT INDICATED PD MEDICAL DECISION MAKING - ED course ED course: 87-year-old woman presents with hypertension, no evidence of endorgan damage. There does seem to be an anxiety component about it. I think clonidine would be a good addition as this may help her anxiety as well. She does not drive. Departure - Departure Disposition: 01 Home, Self Care Clinical Impression: Hypertension Qualifiers: Hypertension type: essential hypertension Qualified Code(s): I10 - Essential ( primary) hypertension Condition: Good Record reviewed to determine appropriate education?: Yes Instructions: Hypertension Dc Follow-Up: JM BARTON [Primary Care Provider] - Within 3 Days Prescriptions: cloNIDine [Catapres] 0.2 mg PO TID #90 tablet
[2017-05-21 21:23] LABS: CREATININE 0.7 mg/dL (0.4-1.0); POTASSIUM 3.4 mmol/L (3.5-5.0)
[2017-05-21 21:23] LABS: BILIRUBIN,URINE NEGATIVE (NEGATIVE); PH,URINE 7.5 PH (5.0-7.5)
[2017-05-21 21:24] LABS: UA CHARGE (STRIP ONLY) YES; UR CULTURE IF IND NOT INDICATED
[2017-05-21] MEDS ORDERED: cloNIDine 0.1 MG TABLET PO STA (21:51)
[2017-05-21] MEDS ORDERED: cloNIDine 0.1 MG TABLET ONE (22:01)
[2017-05-21 22:24] VITALS: BP 184/83
== END 2017-05-21 22:45 | disposition home or self-care (01) ==
LOC: EDUNIT# → ED 20:41
DX: I10 Essential (primary) hypertension (principal); F41.9 Anxiety disorder, unspecified; R94.31 Abnormal electrocardiogram [ECG] [EKG]
CPT/HCPCS: 36415; 80048; 81003; 84484; 93005; 99283; A9270; 81001; 87086

== ENCOUNTER 2017-06-25 08:54 | Outpatient (CLI) | payer MEDICARE | END 2017-06-25 08:55 | disposition critical access hospital (66) | LOC: EMS 08:54 | PROVIDERS: ATTEND Surgery | DX: R19.7 Diarrhea, unspecified (principal) | CPT/HCPCS: A0425; A0429 ==

== ENCOUNTER 2017-06-25 09:30 | Emergency (ER) | payer MEDICARE ==
[2017-06-25] MEDS ORDERED: SODIUM CHLORIDE 0.9% 1,000 ML IV ONE (10:16)
--- NOTE | 2017-06-25 10:19 | ED Physician Documentation ---
PD HPI NVD - Stated complaint Stated Complaint: N/D - Chief complaint Chief Complaint: Abd Pain - History obtained from History obtained from: Patient - History of Present Illness Timing - onset: Enter time (399), Today Timing - duration: Hours Timing - details: Abrupt onset, Still present Associated symptoms: Other (diaphoresis, nausea and diarreha) Contributing factors: Bad food Improved by: Laying still Similar symptoms before: Has not had sx before Recently seen: Not recently seen - Additonal information Additional information: 87-year-old female has developed acute diarrhea this morning preceded by some nausea without vomiting. She feels that this is related to eating some grapes that she has growing at her home. She had some grapes a few days ago developed some mild diarrhea following that and then has more grapes yesterday and this developed in the drip pumper. She has been incontinent of stool and diaphoretic. Review of Systems Constitutional: reports: Chills, Sweats. denies: Fever Eyes: denies: Decreased vision Ears: denies: Ear pain Nose: denies: Congestion Throat: denies: Sore throat Cardiac: denies: Chest pain / pressure Respiratory: denies: Cough GI: reports: Nausea, Diarrhea. 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 HEENT: None Psych: Depression Musculoskeletal: Osteoarthritis Derm: None - Past Surgical History Past Surgical History: Yes General: Appendectomy Ortho: Other /PROBATE LAWYER: Hysterectomy HEENT: Tonsil/Adenoidectomy - Present Medications Home Medications: Ambulatory Orders Medication Instructions Recorded Confirmed Atorvastatin [Lipitor] 20 mg PO DAILY 11/10/14 06/25/17 Cranberry 500 mg PO BID 11/10/14 06/25/17 Escitalopram [Lexapro] 10 mg PO DAILY 11/10/14 06/25/17 Glucosamine Sulfate Dipot Chlr 500 mg PO TID 11/10/14 06/25/17 [Glucosamine] Magnesium 500 mg PO DAILY 11/10/14 06/25/17 [place]-3 Fatty Acids [Fish Oil] 1,000 mg PO BID 11/10/14 06/25/17 Cholecalciferol (Vitamin D3) 1 tab ORAL DAILY 02/04/15 06/25/17 [Vitamin D-400] Multivit-Min/FA/Lycopene/Lut 1 each PO DAILY 02/04/15 06/25/17 [Centrum Silver Tablet] Verapamil [Calan] 180 mg PO DAILY 03/09/15 06/25/17 Saccharomyces Boulardii [Florastor] 1 cap PO BID 01/30/17 06/25/17 Aspirin 81 mg ORAL DAILY 05/21/17 06/25/17 cloNIDine [Catapres] 0.2 mg PO TID #90 tablet 05/21/17 06/25/17 Gabapentin 300 mg PO TID 06/25/17 06/25/17 - Allergies Allergies/Adverse Reactions: Allergies Allergy/AdvReac Type Severity Reaction Status Date / Time Sulfa (Sulfonamide Allergy Severe Anaphylaxis Verified 05/21/17 20:45 Antibiotics) clarithromycin Allergy Unknown Verified 05/21/17 20:45 codeine Allergy Nausea Verified 05/21/17 20:45 levofloxacin Allergy Unknown Verified 05/21/17 20:45 phenazopyridine HCl * Allergy Unknown Verified 05/21/17 20:45 [From Pyridium] - Social History Does the pt smoke?: No Smoking Status: Never smoker Does the pt drink ETOH?: No Does the pt have substance abuse?: No - Immunizations Immunizations are current?: Yes - POLST Patient has POLST: No PD ED PE NORMAL - Vitals Vital signs reviewed: Yes (hypertensive) - General General: No acute distress, Well developed/nourished, Other (The patient is diaphoretic) - HEENT HEENT: Atraumatic, PERRL - Neck Neck: Supple, no meningeal sign - Cardiac Cardiac: RRR, No murmur - Respiratory Respiratory: No respiratory distress, Clear bilaterally - Abdomen Abdomen: Soft, Non tender - Back Back: No CVA TTP, No spinal TTP - Derm Derm: Normal color, Warm and dry, No rash - Extremities Extremities: No deformity, No edema - Neuro Neuro: No motor deficit, No sensory deficit - Psych Psych: Normal mood, Normal affect Results - Vitals Vitals: Vital Signs - 24 hr 06/25/17 06/25/17 06/25/17 09:30 11:17 12:40 Temperature 36.5 C 35.9 C L 36.0 C L Heart Rate 68 66 80 Respiratory 18 16 16 Rate Blood Pressure 178/66 H 196/77 H 214/84 H O2 Saturation 99 95 96 06/25/17 06/25/17 14:19 14:23 Temperature 36.1 C L 36.5 C Heart Rate 96 76 Respiratory 12 18 Rate Blood Pressure 208/83 H 197/89 H O2 Saturation 97 96 Oxygen O2 Source [] Room air O2 Source Room air - Labs Labs: Laboratory Tests 06/25/17 06/25/17 06/25/17 10:25 11:00 13:39 WBC 10.0 RBC 4.66 Hgb 14.6 Hct 42.1 MCV 90.4 MCH 31.4 H MCHC 34.7 RDW 13.4 Plt Count 168 MPV 8.4 Neut # 8.1 H Lymph # 0.9 L [place] # 0.9 Eos # 0.1 Baso # 0.1 Absolute Nucleated RBC 0.00 Nucleated RBC % 0.0 Sodium 144 Potassium 3.8 Chloride 104 Carbon Dioxide 27 Anion Gap 13.0 BUN 12 Creatinine 0.7 Estimated GFR (MDRD) 79 L Glucose 135 H Calcium 8.9 Total Bilirubin 0.9 AST 36 ALT 28 Alkaline Phosphatase 109 Troponin I Total Protein 7.6 Albumin 4.3 Globulin 3.3 Albumin/Globulin Ratio 1.3 Lipase 49 Urine Color LIGHT YELLOW Urine Clarity CLEAR Urine pH 6.0 Ur Specific [place] <=1.005 Urine Protein NEGATIVE Urine Glucose (UA) NEGATIVE Urine Ketones NEGATIVE Urine Occult Blood NEGATIVE Urine Nitrite NEGATIVE Urine Bilirubin NEGATIVE Urine Urobilinogen 0.2 (NORMAL) Ur Leukocyte Esterase NEGATIVE Ur Microscopic Review NOT INDICATED Urine Culture Comments NOT INDICATED 06/25/17 13:39 WBC RBC Hgb Hct MCV MCH MCHC RDW Plt Count MPV Neut # Lymph # [place] # Eos # Baso # Absolute Nucleated RBC Nucleated RBC % Sodium Potassium Chloride Carbon Dioxide Anion Gap BUN Creatinine Estimated GFR (MDRD) Glucose Calcium Total Bilirubin AST ALT Alkaline Phosphatase Troponin I < 0.04 Total Protein Albumin Globulin Albumin/Globulin Ratio Lipase Urine Color Urine Clarity Urine pH Ur Specific [place] Urine Protein Urine Glucose (UA) Urine Ketones Urine Occult Blood Urine Nitrite Urine Bilirubin Urine Urobilinogen Ur Leukocyte Esterase Ur Microscopic Review Urine Culture Comments Procedures - IVC sono (time) 1010 Bedside IVC sono: IVC measures (cm) (1.33 (duplicated system)), Dehydration PD MEDICAL DECISION MAKING - ED course Complexity details: reviewed results, re-evaluated patient, considered differential, d/w patient ED course: 87-year-old female with a bout of profuse diarrhea starting early this morning is mildly dehydrated on arrival to the emergency department an IV's saline is begun. She is unable to produce a specimen here in the emergency department her electrolytes are normal and she is rehydrated. Departure - Departure Disposition: 01 Home, Self Care Clinical Impression: Gastroenteritis Condition: Stable Instructions: ED Food Poison Or Gastroenteritis Follow-Up: JM BARTON [Primary Care Provider] - Comments: If your diarrhea returns take some Imodium as directed. Today you were mildly dehydrated and we have rehydrated you. Your electrolytes are normal.
[2017-06-25 10:49] LABS: BASOPHILS # (AUTO) 0.1 10^3/uL (0.0-0.1); EOSINOPHILS # (AUTO) 0.1 10^3/uL (0.0-0.7); EOSINOPHILS % (AUTO) 0.7 %; HCT - HEMATOCRIT 42.1 % (37.0-47.0); HGB - HEMOGLOBIN 14.6 g/dL (12.0-16.0); LYMPHOCYTES # (AUTO) 0.9 10^3/uL (1.5-3.5); LYMPHOCYTES % (AUTO) 8.6 %; MEAN CORPUSCULAR HEMOGLOBIN 31.4 pg (27.0-31.0); MEAN CORPUSCULAR HGB CONC 34.7 g/dL (32.0-36.0); MEAN CORPUSCULAR VOLUME 90.4 fL (81.0-99.0); MEAN PLATELET VOLUME 8.4 fL (7.9-10.8); MONOCYTES # (AUTO) 0.9 10^3/uL (0.0-1.0); MONOCYTES % (AUTO) 8.9 %; NEUTROPHILS # (AUTO) 8.1 10^3/uL (1.5-6.6); NEUTROPHILS % (AUTO) 80.8 %; RED BLOOD COUNT 4.66 10^6/uL (4.20-5.40); RED CELL DISTRIBUTION WIDTH 13.4 % (12.0-15.0)
[2017-06-25 11:51] LABS: BILIRUBIN,URINE NEGATIVE (NEGATIVE)
[2017-06-25 11:53] LABS: UA CHARGE (STRIP ONLY) YES; UR CULTURE IF IND NOT INDICATED
[2017-06-25] MEDS ORDERED: GABAPENTIN 100 MG CAPSULE PO STA (12:27)
[2017-06-25] MEDS ORDERED: GABAPENTIN 300 MG CAPSULE ONE (12:34)
[2017-06-25 14:07] LABS: ALBUMIN/GLOBULIN RATIO 1.3 (1.0-2.2); BILIRUBIN,TOTAL 0.9 mg/dL (0.2-1.0); CALCIUM 8.9 mg/dL (8.5-10.3); CREATININE 0.7 mg/dL (0.4-1.0); POTASSIUM 3.8 mmol/L (3.5-5.0); TOTAL PROTEIN 7.6 g/dL (6.7-8.2)
[2017-06-25 14:23] VITALS: BP 197/89
== END 2017-06-25 15:35 | disposition home or self-care (01) ==
LOC: EDUNIT# → EDBD → ED 09:30
DX: K52.9 Noninfective gastroenteritis and colitis, unspecified (principal); E86.0 Dehydration; I10 Essential (primary) hypertension; Z79.82 Long term (current) use of aspirin
CPT/HCPCS: 36415; 80053; 81003; 83690; 84484; 85025; 96360; 99283; 99284; A9270; 81001; 87045; 87046; 87086

== ENCOUNTER 2017-08-13 13:19 | Outpatient (CLI) | payer MEDICARE ==
--- NOTE | 2017-08-14 10:30 | XRAY Report ---
TWO VIEW CHEST: 08/13/2017 CLINICAL INDICATION: Cough, choking. FINDINGS: Frontal and lateral views of the chest demonstrate a normal cardiac silhouette. A small hi atal hernia is present. The lungs are hyperinflated, compatible with COPD. No focal consolidation, ef fusion, or pneumothorax is present. IMPRESSION: COPD. SMALL HIATAL HERNIA. JOB #: [id number] EXT JOB #:[id number]
== END 2017-08-13 13:20 | disposition home or self-care (01) ==
LOC: DI.S 13:19
PROVIDERS: ATTEND Nurse Practitioner Family
DX: J44.9 Chronic obstructive pulmonary disease, unspecified (principal); K44.9 Diaphragmatic hernia without obstruction or gangrene
CPT/HCPCS: 71020

== ENCOUNTER 2017-09-03 13:18 | Outpatient (CLI) | payer MEDICARE | END 2017-09-03 13:19 | disposition home or self-care (01) | LOC: DI.S 13:18 | PROVIDERS: ATTEND Nurse Practitioner Family | DX: Z53.9 Procedure and treatment not carried out, unspecified reason (principal) ==

== ENCOUNTER 2017-11-19 06:59 | Outpatient (CLI) | payer MEDICARE | END 2017-11-19 07:00 | disposition EMS.NT | LOC: EMS 06:59 | PROVIDERS: ATTEND Surgery | DX: M54.5 Low back pain (principal); R11.0 Nausea ==

== ENCOUNTER 2017-11-20 13:32 | Outpatient (CLI) | payer MEDICARE | END 2017-11-20 13:33 | disposition critical access hospital (66) | LOC: EMS 13:32 | PROVIDERS: ATTEND Surgery | DX: R10.9 Unspecified abdominal pain (principal) | CPT/HCPCS: A0425; A0429 ==

== ENCOUNTER 2017-11-20 14:11 | Emergency (ER) | payer MEDICARE ==
[2017-11-20] MEDS ORDERED: SODIUM CHLORIDE 0.9% 1,000 ML IV ONE (14:22)
[2017-11-20 15:14] LABS: BILIRUBIN,URINE NEGATIVE (NEGATIVE); GLUCOSE, URINE (UA) NEGATIVE (NEGATIVE); KETONES,URINE (UA) NEGATIVE (NEGATIVE); LEUKOCYTE ESTERASE, URINE NEGATIVE (NEGATIVE); NITRITE,URINE NEGATIVE (NEGATIVE); OCCULT BLOOD,URINE NEGATIVE (NEGATIVE); PH,URINE 6.5 PH (5.0-7.5); PROTEIN,URINE NEGATIVE (NEGATIVE); UROBILINOGEN,URINE 0.2 (NORMAL) E.U./dL (NORMAL)
[2017-11-20 15:15] LABS: BASOPHILS % (AUTO) 0.5 %; EOSINOPHILS % (AUTO) 0.4 %; LYMPHOCYTES # (AUTO) 1.3 10^3/uL (1.5-3.5); LYMPHOCYTES % (AUTO) 16.9 %; MEAN CORPUSCULAR HEMOGLOBIN 32.2 pg (27.0-31.0); MEAN CORPUSCULAR HGB CONC 34.6 g/dL (32.0-36.0); MEAN CORPUSCULAR VOLUME 93.1 fL (81.0-99.0); MEAN PLATELET VOLUME 7.9 fL (7.9-10.8); MONOCYTES # (AUTO) 0.9 10^3/uL (0.0-1.0); MONOCYTES % (AUTO) 11.5 %; NEUTROPHILS # (AUTO) 5.5 10^3/uL (1.5-6.6); NEUTROPHILS % (AUTO) 70.7 %; PLT - PLATELET COUNT 178 10^3/uL (130-450); RED BLOOD COUNT 4.34 10^6/uL (4.20-5.40); RED CELL DISTRIBUTION WIDTH 13.7 % (12.0-15.0); WHITE BLOOD COUNT 7.8 x10^3/uL (4.8-10.8)
[2017-11-20 15:16] LABS: CLARITY,URINE CLEAR (CLEAR)
[2017-11-20 15:27] LABS: ALBUMIN 4.4 g/dL (3.2-5.5); ALBUMIN/GLOBULIN RATIO 1.4 (1.0-2.2); CALCIUM 9.1 mg/dL (8.5-10.3); CREATININE 0.9 mg/dL (0.4-1.0); TOTAL PROTEIN 7.5 g/dL (6.7-8.2)
[2017-11-20] MEDS ORDERED: IOPAMIDOL-300 100 ML VIAL ONE (16:14)
[2017-11-20] MEDS ORDERED: IOPAMIDOL-300 100 ML VIAL IVP ONE (16:35)
--- NOTE | 2017-11-20 16:58 | CT Preliminary Report ---
Exam: CT ABDOMEN/PELVIS W/ IMPRESSION: 1. Chronic lung disease. 2. Moderate paraesophageal hernia. 3. Colonic diverticulosis. 4. No radiographic explanation for this lady's presenting symptoms. [facility] SITE ID: [id number]
--- NOTE | 2017-11-20 17:06 | CT Report ---
EXAM: CT ABDOMEN AND PELVIS EXAM DATE: 11/20/2017 04:36 PM. CLINICAL HISTORY: Chronic left lower quadrant pain. COMPARISONS: 11/10/2014. TECHNIQUE: Routine helical CT imaging was performed through the abdomen and pelvis. IV contrast: 100 mL Isovue-300. Enteric contrast: No. Reconstructions: Coronal and sagittal. In accordance with CT protocol optimization, one or more of the following dose reduction techniques w ere utilized for this exam: automated exposure control, adjustment of mA and/or KV based on patient s ize, or use of iterative reconstructive technique. FINDINGS: Lung Bases: Chronic lung disease. Subsegmental bronchiectasis in the left anterior lung base. New mod erate paraesophageal hernia. Liver: Normal. No masses. Gallbladder/Bile Ducts: Unremarkable. Spleen: Normal. Pancreas: Normal. Adrenal Glands: Normal. Kidneys: Normal. 2 cm cyst in the right kidney. No masses or hydronephrosis. Peritoneal Cavity/Bowel: Diverticula off the colon. No free fluid, free air or adenopathy. No masses or acute inflammatory process. Appendix not visualized but no inflammatory changes adjacent to the cecum. Pelvic Organs: Remote hysterectomy. No stones in the urinary bladder, free fluid nor adnexal mass les ions. Vasculature: No aneurysms or other significant abnormality. Bones: Multilevel marked degenerative changes throughout the spine. Other: None. IMPRESSION: 1. Chronic lung disease. 2. Moderate paraesophageal hernia. 3. Colonic diverticulosis. 4. No radiographic explanation for this lady's presenting symptoms. [facility] Referring Provider Line: [phone] SITE ID: [id number]
--- NOTE | 2017-11-20 17:55 | ED Physician Documentation ---
PD HPI ABD PAIN - Stated complaint Stated Complaint: LLQ PAIN - Chief complaint Chief Complaint: Abd Pain - History obtained from History obtained from: Patient, EMS - History of Present Illness Timing - duration: Months (2 months or longer.) Timing - details: Now resolved, Waxing and waning Quality: Pain Location: LLQ Worsened by: Moving Associated symptoms: No: Fever, Nausea, Vomiting, Diarrhea, Dysuria - Additional information Additional information: The patient is an 87-year-old female who presents via ambulance complaining of left lower quadrant abdominal pain. She has experienced similar pain intermittently for the past 2 months or longer. The pain is worse with walking. She denies associated nausea, vomiting, diarrhea, fever, or dysuria. Her last bowel movement was this morning, but it was "weird." Her pain has resolved prior to arrival in the emergency department. Past medical history is significant for diverticulitis. Surgical history is significant for appendectomy and hysterectomy. Review of Systems Constitutional: denies: Fever Nose: denies: Congestion Throat: denies: Sore throat Cardiac: denies: Chest pain / pressure Respiratory: denies: Dyspnea, Cough GI: reports: Abdominal Pain. denies: Nausea, Vomiting, Diarrhea : denies: Dysuria Skin: denies: Rash Musculoskeletal: reports: Back pain (Chronic, mild low back pain.). 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 HEENT: None Psych: Depression Musculoskeletal: Osteoarthritis Derm: None - Past Surgical History Past Surgical History: Yes General: Appendectomy Ortho: Other /BEAD BUILDER: Hysterectomy HEENT: Tonsil/Adenoidectomy - Present Medications Home Medications: Ambulatory Orders Medication Instructions Recorded Confirmed Atorvastatin [Lipitor] 20 mg PO DAILY 11/10/14 06/25/17 Cranberry 500 mg PO BID 11/10/14 06/25/17 Escitalopram [Lexapro] 10 mg PO DAILY 11/10/14 06/25/17 Glucosamine Sulfate Dipot Chlr 500 mg PO TID 11/10/14 06/25/17 [Glucosamine] Magnesium 500 mg PO DAILY 11/10/14 06/25/17 [place]-3 Fatty Acids [Fish Oil] 1,000 mg PO BID 11/10/14 06/25/17 Cholecalciferol (Vitamin D3) 1 tab ORAL DAILY 02/04/15 06/25/17 [Vitamin D-400] Multivit-Min/FA/Lycopene/Lut 1 each PO DAILY 02/04/15 06/25/17 [Centrum Silver Tablet] Verapamil [Calan] 180 mg PO DAILY 03/09/15 06/25/17 Saccharomyces Boulardii [Florastor] 1 cap PO BID 01/30/17 06/25/17 Aspirin 81 mg ORAL DAILY 05/21/17 06/25/17 cloNIDine [Catapres] 0.2 mg PO TID #90 tablet 05/21/17 06/25/17 Gabapentin 300 mg PO TID 06/25/17 06/25/17 Promethazine [Phenergan] 25 - 50 mg PO Q6H PRN #10 tab 11/20/17 - Allergies Allergies/Adverse Reactions: Allergies Allergy/AdvReac Type Severity Reaction Status Date / Time Sulfa (Sulfonamide Allergy Severe Anaphylaxis Verified 05/21/17 20:45 Antibiotics) clarithromycin Allergy Unknown Verified 05/21/17 20:45 codeine Allergy Nausea Verified 05/21/17 20:45 levofloxacin Allergy Unknown Verified 05/21/17 20:45 phenazopyridine HCl * Allergy Unknown Verified 11/20/17 14:14 [From Pyridium] - Social History Does the pt smoke?: No Smoking Status: Never smoker Does the pt drink ETOH?: No Does the pt have substance abuse?: No - Immunizations Immunizations are current?: Yes - POLST Patient has POLST: No PD ED PE NORMAL - Vitals Vital signs reviewed: Yes (Systolic hypertension.) - General General: Alert and oriented X 3, Well developed/nourished - HEENT HEENT: Atraumatic, EOMI, Moist mucous membranes, Pharynx benign - Neck Neck: No adenopathy, No JVD - Cardiac Cardiac: RRR - Respiratory Respiratory: No respiratory distress, Clear bilaterally - Abdomen Abdomen: Normal bowel sounds, Soft, Non tender - Back Back: No CVA TTP, No spinal TTP - Derm Derm: No rash - Extremities Extremities: No edema, No calf tenderness / cord - Neuro Neuro: Alert and oriented X 3, No motor deficit, Normal speech Results - Vitals Vitals: Oxygen O2 Source [] Room air O2 Source Room air - Labs Labs: Laboratory Tests 11/20/17 11/20/17 11/20/17 15:00 15:00 15:00 WBC 7.8 RBC 4.34 Hgb 14.0 Hct 40.4 MCV 93.1 MCH 32.2 H MCHC 34.6 RDW 13.7 Plt Count 178 MPV 7.9 Neut # 5.5 Lymph # 1.3 L [place] # 0.9 Eos # 0.0 Baso # 0.0 Absolute Nucleated RBC 0.00 Nucleated RBC % 0.0 Sodium 135 Potassium 3.8 Chloride 98 L Carbon Dioxide 26 Anion Gap 11.0 BUN 15 Creatinine 0.9 Estimated GFR (MDRD) 59 L Glucose 93 Calcium 9.1 Total Bilirubin 1.0 AST 31 ALT 22 Alkaline Phosphatase 97 Total Protein 7.5 Albumin 4.4 Globulin 3.1 Albumin/Globulin Ratio 1.4 Lipase 27 Urine Color YELLOW Urine Clarity CLEAR Urine pH 6.5 Ur Specific [place] <=1.005 Urine Protein NEGATIVE Urine Glucose (UA) NEGATIVE Urine Ketones NEGATIVE Urine Occult Blood NEGATIVE Urine Nitrite NEGATIVE Urine Bilirubin NEGATIVE Urine Urobilinogen 0.2 (NORMAL) Ur Leukocyte Esterase NEGATIVE Ur Microscopic Review NOT INDICATED Urine Culture Comments NOT INDICATED - Rads (name of study) CT abd/pelvis Radiology: Prelim report reviewed, EMP read contemporaneously, See rad report (1 ) Chronic lung disease. 2) Moderate paraesophageal hernia. 3)Colonic diverticulosis. 4) No radiographic explanation for this lady's presenting symptoms.) PD MEDICAL DECISION MAKING - ED course Complexity details: reviewed results, re-evaluated patient, considered differential, d/w patient ED course: The underlying cause for the patient's intermittent left lower quadrant abdominal pain is unclear at this time. There is no clinical evidence of diverticulitis, and her CBC is normal, with a white count of 7.8, chemistry is normal, urinalysis is normal, and CT scan with IV contrast reveals no radiographic evidence to explain her symptoms. Her presentation does not suggest abdominal aortic aneurysm, kidney stone, or bowel obstruction. On repeated examinations, her abdomen remains benign. Adhesions from previous abdominal surgery is a consideration, but is by no means evident at this time. I discussed with her the results of her workup, outpatient follow-up, as well as potentially worrisome signs or symptoms that should prompt reevaluation in the emergency department. Departure - Departure Disposition: 01 Home, Self Care Clinical Impression: Abdominal pain Qualifiers: Abdominal location: left lower quadrant Qualified Code(s): R10.32 - Left lower quadrant pain Condition: Stable Instructions: ED Abdominal Pain Unkn Cause Follow-Up: Christine Varma ARNP [Physician No Access] - Prescriptions: Promethazine [Phenergan] 25 - 50 mg PO Q6H PRN #10 tab PRN Reason: Nausea / Vomiting Comments: Drink plenty of fluids. You can use Aleve if needed for recurrent pain. You can use Phenergan as prescribed if needed for nausea. Follow up with your primary physician within 1-2 weeks. Call to schedule appointment. Return to the emergency department if you develop increasing abdominal pain, persistent vomiting, or otherwise worsening symptoms. Discharge Date/Time: 11/20/17 18:23
[2017-11-20 18:22] VITALS: BP 145/84
== END 2017-11-20 18:23 | disposition home or self-care (01) ==
LOC: EDUNIT# → ED 14:11
DX: R10.32 Left lower quadrant pain (principal); I10 Essential (primary) hypertension
CPT/HCPCS: 36415; 74177; 80053; 81003; 83690; 85025; 99284; Q9967; 81001; 87086

== ENCOUNTER 2017-11-26 14:18 | Outpatient (CLI) | payer MEDICARE ==
--- NOTE | 2017-11-27 15:41 | MRI Report ---
EXAM: MRI LUMBAR SPINE WITHOUT CONTRAST EXAM DATE: 11/26/2017 03:53 PM. CLINICAL HISTORY: Lower back, abdominal pain x 2 months. Chronic low back pain, worse on the left bethany e. COMPARISON: CT scan of the abdomen and pelvis 11/20/2017. MRI of the lumbar spine 08/08/2011. TECHNIQUE: Multiplanar, multisequence T1-weighted and fluid-sensitive sequences of the lumbar spine f rom T12 to S1 without contrast. Other: None. FINDINGS: Spinal Cord: The conus terminates at L1-L2. The conus medullaris is unremarkable. Crowding of cauda e quina nerve roots is seen in the upper and lower lumbar thecal sac. Curvilinear appearance to cauda e quina nerve roots is seen in the mid lumbar thecal sac. This has progressed compared to prior study. Alignment: Grade 1, 5 mm, spondylolisthesis is seen at L4-L5. Minimal, 2.5 mm, spondylolisthesis is s een at L3-L4. Bone Marrow: Five [id number] lumbar vertebral bodies are assumed. There has been interval marked progression of diskogenic endplate irregularity and signal abnormality predominating at L3-L4 and L4 -L5. Interval development of a 9 mm Schmorl's node is seen in the L2 superior endplate. Bone marrow e vinnie is seen in the L4 left pedicle consistent with reaction to adjacent degenerative change. Disk Levels/Facets: T11-T12: Evaluated on sagittal series. Mild right-sided degenerative facet change. Mild loss of disk space height. Minimal dorsal subligamentous disk protrusion. Mild anterior and right lateral protrusi on of disk/osteophyte complex. No stenosis. T12-L1: Unremarkable. L1-L2: Moderate degenerative facet change is seen. Thickening of the ligamentum flavum is noted. Mode rate loss of disk space height is seen. Diskogenic endplate irregularity is seen. Mild dorsal with mo derate lateral and ventral circumferential protrusion of disk/osteophyte complex. This has progressed . Effacement of the thecal sac is noted with mild canal stenosis. Effacement of exiting right L1 nerv e root is seen with moderate foraminal stenosis. L2-L3: Mild degenerative facet change is seen. Minimal dorsal disk bulge. No stenosis. L3-L4: Moderate to marked hypertrophic degenerative facet change is seen. Fluid is seen in the facet joints. Thickening of the ligamentum flavum. Minimal spondylolisthesis. Moderate loss of disk space h eight. Vacuum cleft phenomenon and T2 hypointense disk signal is present. Moderately extensive diskog enic endplate irregularity and Modic type I signal change is seen. Mild to moderate circumferential d isk bulge is seen. Lobular dorsal superior disk extrusion is seen behind the L3 inferior endplate. Ef facement and crowding of the thecal sac and cauda equina nerve roots is seen with marked canal stenos is. Effacement of descending L4 nerve roots is noted. Moderate right lateral recess stenosis. Marked left lateral recess stenosis. Effacement of exiting L3 nerve roots is seen bilaterally with moderate foraminal stenosis. L4-L5: Marked hypertrophic degenerative facet change is seen. Fluid is seen in the facet joints. Clinton ed thickening of the ligamentum flavum is seen. Grade 1 spondylolisthesis is present. Moderate loss o f disk space height. Vacuum cleft phenomenon and T2 hypointense disk signal. Moderate to marked disko genic endplate irregularity and signal abnormality. Mild dorsal with moderate lateral and ventral cir cumferential disk protrusion. Superior extrusion behind the L4 inferior endplate is seen. Marked effa cement of the thecal sac and descending L5 nerve roots is seen. Marked canal and lateral recess steno sis is present. Effacement of exiting L4 nerve roots is seen bilaterally. Mild right foraminal stenos is. Marked left foraminal stenosis. L5-S1: Mild degenerative facet change. Marked loss of disk space height. Mild endplate irregularity i s seen. Mild circumferential disk protrusion is seen. Effacement of the proximal descending left S1 n erve root is seen with mild lateral recess stenosis. Effacement of exiting L5 nerve roots is seen lat erally in the foramen bilaterally. Moderate right foraminal stenosis. Mild left foraminal stenosis. Musculature: Mild fatty atrophy of posterior paraspinous musculature is seen in the lower lumbar and sacral region. Other: The partially visualized retroperitoneum is unremarkable. 17 mm cyst is partially visualized p osterolaterally in the right kidney. IMPRESSION: 1. Progression of marked hypertrophic degenerative change in the mid and lower lumbar spine as noted above. Progression of diskogenic endplate irregularity and bone marrow edema is seen especially at L4 . 2. L5-S1: Right moderate foraminal stenosis. Left mild foraminal and mild lateral recess stenosis. 3. L4-L5: Grade 1 spondylotic spondylolisthesis. Marked canal stenosis. Right mild foraminal and clinton ed lateral recess stenosis. Left marked foraminal and lateral recess stenosis. 4. L3-L4: Minimal spondylotic spondylolisthesis. Marked canal stenosis. Right moderate foraminal and lateral recess stenosis. Left moderate foraminal and marked lateral recess stenosis. 5. L1-L2: Mild canal stenosis. Right moderate foraminal stenosis. Comment: The following findings are so common in adults without low back pain that while we report th eir presence, they must be interpreted with caution and in the context of the clinical situation. (Re francisco Mcdonald et al, Spine 2001) Prevalence of findings in patients without low back pain: Disk degeneration (any evidence): 92% Disk desiccation/T2 signal loss: 83% Disk height loss: 56% Disk bulge: 64% Disk protrusion: 32% Annular tear/high intensity zone: 38% [facility] Referring Provider Line: [phone] SITE ID: [id number]
== END 2017-11-26 14:19 | disposition home or self-care (01) ==
LOC: DI 14:18
PROVIDERS: ATTEND Nurse Practitioner Family
DX: M51.36 Other intervertebral disc degeneration, lumbar region (principal); M47.896 Other spondylosis, lumbar region; M51.26 Other intervertebral disc displacement, lumbar region; M43.16 Spondylolisthesis, lumbar region; M47.897 Other spondylosis, lumbosacral region; M51.27 Other intervertebral disc displacement, lumbosacral region; M51.37 Other intervertebral disc degeneration, lumbosacral region; M47.894 Other spondylosis, thoracic region; M51.24 Other intervertebral disc displacement, thoracic region
CPT/HCPCS: 72148

== ENCOUNTER 2017-12-03 15:44 | Outpatient (CLI) | payer MEDICARE | END 2017-12-03 15:45 | disposition critical access hospital (66) | LOC: EMS 15:44 | PROVIDERS: ATTEND Surgery | DX: M54.9 Dorsalgia, unspecified (principal) | CPT/HCPCS: A0425; A0429 ==

== ENCOUNTER 2017-12-03 16:24 | Emergency (ER) | payer MEDICARE ==
[2017-12-03] MEDS ORDERED: DEXAMETHASONE 10 MG/ML VIAL IVP STA (16:44)
[2017-12-03] MEDS ORDERED: HYDROmorphone 1 MG/ML SYRINGE IVP STA (16:44)
[2017-12-03] MEDS ORDERED: ONDANSETRON 4 MG/2 ML VIAL IVP STA (16:44)
--- NOTE | 2017-12-03 16:47 | ED Physician Documentation ---
PD HPI BACK PAIN - Stated complaint Stated Complaint: LOW BACK PX - Chief complaint Chief Complaint: Back Pain - History obtained from History obtained from: Patient, EMS - History of Present Illness Timing - onset: Other (87-year-old woman who at the age of 30 had some sort of lumbar spinal surgery. She was doing well since then until about 2 months ago when she would have R when she started to develop severe low back pain radiating especially the left but now to both sides. She has been on oxycodone and gabapentin. The oxycodone is helpful but makes her sick. She had an MRI a week ago. 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 HEENT: None Psych: Depression Musculoskeletal: Osteoarthritis Derm: None - Past Surgical History Past Surgical History: Yes General: Appendectomy Ortho: Other /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 REFUELING HANDLER: Hysterectomy HEENT: Tonsil/Adenoidectomy - Present Medications Home Medications: Ambulatory Orders Medication Instructions Recorded Confirmed Atorvastatin [Lipitor] 20 mg PO DAILY 11/10/14 06/25/17 Cranberry 500 mg PO BID 11/10/14 06/25/17 Escitalopram [Lexapro] 10 mg PO DAILY 11/10/14 06/25/17 Glucosamine Sulfate Dipot Chlr 500 mg PO TID 11/10/14 06/25/17 [Glucosamine] Magnesium 500 mg PO DAILY 11/10/14 06/25/17 [place]-3 Fatty Acids [Fish Oil] 1,000 mg PO BID 11/10/14 06/25/17 Cholecalciferol (Vitamin D3) 1 tab ORAL DAILY 02/04/15 06/25/17 [Vitamin D-400] Multivit-Min/FA/Lycopene/Lut 1 each PO DAILY 02/04/15 06/25/17 [Centrum Silver Tablet] Verapamil [Calan] 180 mg PO DAILY 03/09/15 06/25/17 Saccharomyces Boulardii [Florastor] 1 cap PO BID 01/30/17 06/25/17 Aspirin 81 mg ORAL DAILY 05/21/17 06/25/17 Gabapentin 300 mg PO TID 06/25/17 06/25/17 Promethazine [Phenergan] 25 - 50 mg PO Q6H PRN #10 tab 11/20/17 Cyclobenzaprine HCl 1 tab PO DAILY PRN 12/03/17 12/03/17 Lisinopril 1 tab PO DAILY 12/03/17 12/03/17 cloNIDine [Catapres] 0.1 mg PO TID 12/03/17 - Allergies Allergies/Adverse Reactions: Allergies Allergy/AdvReac Type Severity Reaction Status Date / Time Sulfa (Sulfonamide Allergy Severe Anaphylaxis Verified 05/21/17 20:45 Antibiotics) clarithromycin Allergy Unknown Verified 05/21/17 20:45 codeine Allergy Nausea Verified 05/21/17 20:45 levofloxacin Allergy Unknown Verified 05/21/17 20:45 phenazopyridine HCl * Allergy Unknown Verified 11/20/17 14:14 [From Pyridium] - Social History Does the pt smoke?: No Smoking Status: Never smoker Does the pt drink ETOH?: No Does the pt have substance abuse?: No - Family History Family history: reports: Non contributory - Immunizations Immunizations are current?: Yes - POLST Patient has POLST: No PD ED PE NORMAL - Vitals Vital signs reviewed: Yes - General General: Alert and oriented X 3, No acute distress - HEENT HEENT: PERRL, EOMI - Neck Neck: Supple, no meningeal sign, No bony TTP - Cardiac Cardiac: RRR, No murmur - Respiratory Respiratory: No respiratory distress, Clear bilaterally - Abdomen Abdomen: Normal bowel sounds, Soft, Non tender - Back Back: No spinal TTP - Derm Derm: Normal color, Warm and dry - Extremities Extremities: Other (I am unable to elicit really any reflexes on either side, either Achilles or patellar. But she does have good strength in flexion and extension of the ankles and knees on both sides, so I suspect this is age- related. She does have slightly diminished sensation on the left foot, both sides compared to the right, but above the ankle her sensation is symmetric.) - Neuro Neuro: Alert and oriented X 3, Normal speech - Psych Psych: Normal mood, Normal affect Results - Vitals Vitals: Vital Signs - 24 hr 12/03/17 12/03/17 12/03/17 16:28 18:30 20:09 Temperature 36.2 C L 36.8 C Heart Rate 102 H 90 99 Respiratory 19 16 16 Rate Blood Pressure 157/92 H 137/51 H 193/76 H O2 Saturation 94 92 98 12/03/17 12/03/17 21:39 22:29 Temperature Heart Rate 92 99 Respiratory 16 16 Rate Blood Pressure 156/58 H 195/72 H O2 Saturation 98 99 Oxygen O2 Source [With Activity] Room air O2 Source Room air - Labs Labs: Laboratory Tests 12/03/17 12/03/17 12/03/17 17:09 17:41 17:42 WBC 11.4 H RBC 4.76 Hgb 14.9 Hct 44.3 MCV 93.0 MCH 31.2 H MCHC 33.6 RDW 13.8 Plt Count 251 MPV 8.3 Neut # 8.8 H Lymph # 1.3 L Levy # 1.0 Eos # 0.1 Baso # 0.1 Absolute Nucleated RBC 0.02 Nucleated RBC % 0.1 ESR Sodium 132 L Potassium 4.8 Chloride 97 L Carbon Dioxide 25 Anion Gap 10.0 BUN 22 H Creatinine 0.9 Estimated GFR (MDRD) 59 L Glucose 118 H Calcium 9.9 Total Bilirubin 0.8 AST 31 ALT 29 Alkaline Phosphatase 101 C-Reactive Protein < 1.0 Total Protein 7.1 Albumin 4.3 Globulin 2.8 Albumin/Globulin Ratio 1.5 Lipase 48 Urine Color Urine Clarity Urine pH Ur Specific [place] Urine Protein Urine Glucose (UA) Urine Ketones Urine Occult Blood Urine Nitrite Urine Bilirubin Urine Urobilinogen Ur Leukocyte Esterase Ur Microscopic Review Urine Culture Comments 12/03/17 12/03/17 21:56 22:31 WBC RBC Hgb Hct MCV MCH MCHC RDW Plt Count MPV Neut # Lymph # Levy # Eos # Baso # Absolute Nucleated RBC Nucleated RBC % ESR 10 Sodium Potassium Chloride Carbon Dioxide Anion Gap BUN Creatinine Estimated GFR (MDRD) Glucose Calcium Total Bilirubin AST ALT Alkaline Phosphatase C-Reactive Protein Total Protein Albumin Globulin Albumin/Globulin Ratio Lipase Urine Color YELLOW Urine Clarity CLEAR Urine pH 6.0 Ur Specific [place] 1.015 Urine Protein NEGATIVE Urine Glucose (UA) NEGATIVE Urine Ketones NEGATIVE Urine Occult Blood NEGATIVE Urine Nitrite NEGATIVE Urine Bilirubin NEGATIVE Urine Urobilinogen 0.2 (NORMAL) Ur Leukocyte Esterase NEGATIVE Ur Microscopic Review NOT INDICATED Urine Culture Comments NOT INDICATED PD MEDICAL DECISION MAKING - ED course ED course: 87-year-old woman who lives alone with severe back pain with MRI as shown and reviewed. She was dysfunctional last night, laying in bed in her own urine because she could not get to the bathroom. Pain was hard to control here despite multiple rounds of medication. She has [place] and they were called. They had a physician, neurosurgeon at [facility] reviewed the images. They would like her transferred down there As there is no neurosurgeon available here, and she was accepted by Dr. Abad there, but no bed is currently available and she is boarding in the emergency department until a bed opens up at [facility]. Departure - Departure Disposition: 02 Transfer Acute Care Hosp Clinical Impression: Spinal stenosis Qualifiers: Spinal region: lumbar Neurogenic claudication status: unspecified Qualified Code(s): M48.061 - Spinal stenosis, lumbar region without neurogenic claudication Back pain Qualifiers: Back pain location: low back pain Chronicity: acute Back pain laterality: bilateral Sciatica presence: with sciatica Sciatica laterality: bilateral sciatica Qualified Code(s): M54.42 - Lumbago with sciatica, left side Condition: Stable
[2017-12-03] MEDS ORDERED: CHERRY SYRUP 10 ML UDC PO ONE (17:12)
[2017-12-03 17:34] LABS: BASOPHILS # (AUTO) 0.1 10^3/uL (0.0-0.1); EOSINOPHILS # (AUTO) 0.1 10^3/uL (0.0-0.7); EOSINOPHILS % (AUTO) 0.6 %; HGB - HEMOGLOBIN 14.9 g/dL (12.0-16.0); LYMPHOCYTES # (AUTO) 1.3 10^3/uL (1.5-3.5); LYMPHOCYTES % (AUTO) 11.4 %; MEAN CORPUSCULAR HEMOGLOBIN 31.2 pg (27.0-31.0); MEAN CORPUSCULAR HGB CONC 33.6 g/dL (32.0-36.0); MEAN PLATELET VOLUME 8.3 fL (7.9-10.8); MONOCYTES % (AUTO) 9.2 %; NEUTROPHILS # (AUTO) 8.8 10^3/uL (1.5-6.6); NEUTROPHILS % (AUTO) 77.8 %; PLT - PLATELET COUNT 251 10^3/uL (130-450); RED BLOOD COUNT 4.76 10^6/uL (4.20-5.40); RED CELL DISTRIBUTION WIDTH 13.8 % (12.0-15.0); WHITE BLOOD COUNT 11.4 x10^3/uL (4.8-10.8)
[2017-12-03 18:01] LABS: ALBUMIN 4.3 g/dL (3.2-5.5); ALBUMIN/GLOBULIN RATIO 1.5 (1.0-2.2); BILIRUBIN,TOTAL 0.8 mg/dL (0.2-1.0); CALCIUM 9.9 mg/dL (8.5-10.3); CREATININE 0.9 mg/dL (0.4-1.0); TOTAL PROTEIN 7.1 g/dL (6.7-8.2)
[2017-12-03] MEDS ORDERED: diazePAM INJ 5 MG/ML SYRINGE IVP STA (18:32)
[2017-12-03] MEDS ORDERED: KETOROLAC 60 MG/2 ML VIAL IVP STA (20:01)
[2017-12-03] MEDS ORDERED: LISINOPRIL 5 MG TABLET PO STA (20:07)
[2017-12-03 22:34] LABS: BILIRUBIN,URINE NEGATIVE (NEGATIVE); GLUCOSE, URINE (UA) NEGATIVE (NEGATIVE); KETONES,URINE (UA) NEGATIVE (NEGATIVE); LEUKOCYTE ESTERASE, URINE NEGATIVE (NEGATIVE); NITRITE,URINE NEGATIVE (NEGATIVE); OCCULT BLOOD,URINE NEGATIVE (NEGATIVE); PROTEIN,URINE NEGATIVE (NEGATIVE); UROBILINOGEN,URINE 0.2 (NORMAL) E.U./dL (NORMAL)
[2017-12-03 22:37] LABS: CLARITY,URINE CLEAR (CLEAR)
[2017-12-03] MEDS ORDERED: VERAPAMIL 80 MG TABLET PO STA (22:50)
[2017-12-03] MEDS ORDERED: cloNIDine 0.1 MG TABLET PO STA (22:50)
[2017-12-03] MEDS ORDERED: GABAPENTIN 100 MG CAPSULE PO STA (22:50)
[2017-12-03] MEDS ORDERED: ESCITALOPRAM 10 MG TABLET PO STA (22:50)
[2017-12-04] MEDS ORDERED: cloNIDine 0.1 MG TABLET PO STA (07:38)
--- NOTE | 2017-12-04 07:38 | ED Physician Documentation ---
ED Addendum - Addendum Addendum: 12/04/17 07:36 assumed care 7 AM 12/04 87 f per chart has hx back pain, recently worse, had abn MRI, to ED last night with pain so severe she could not get out of bed to go to the bathroom, exam was notable for poor reflexes and some numbness to feet, pt is [facility], case was d/w [facility] and pt was accepted in [facility] is boarding in ER awaiting bed availability I went to see pt she say she is doing well would like her AM meds and breakfast 12/04/17 19:03 waited all day for a bed to become available - approx 445, I called [facility] coordinating team myself and spoke to the doc - approx 530 PM was able to confirm a bed was available at [facility] already completed but accepting doc is now Dr Monterroso according to our [facility] [employer]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
[2017-12-04] MEDS ORDERED: VERAPAMIL ER 180 MG TABLET PO STA (07:39)
[2017-12-04] MEDS ORDERED: GABAPENTIN 100 MG CAPSULE PO STA (07:40)
[2017-12-04] MEDS ORDERED: CYCLOBENZAPRINE 10 MG TABLET PO STA ×3 (08:59→16:22)
[2017-12-04 20:19] VITALS: BP 144/68
== END 2017-12-04 21:00 | disposition short-term general hospital (02) ==
LOC: EDUNIT# → ED 16:24
DX: M48.061 Spinal stenosis, lumbar region without neurogenic claudication (principal); M54.42 Lumbago with sciatica, left side; I10 Essential (primary) hypertension
CPT/HCPCS: 36415; 80053; 81003; 83690; 85025; 85651; 86140; 87040; 96374; 96375; 99285; A9270; J1170; 81001; 87086

== ENCOUNTER 2017-12-19 18:30 | Emergency (ER) | payer MEDICARE ==
[2017-12-19 18:39] VITALS: BP 117/50
--- NOTE | 2017-12-19 19:35 | ED Physician Documentation ---
PD HPI HEENT - Stated complaint Stated Complaint: SORE THROAT - Chief complaint Chief Complaint: Heent - History obtained from History obtained from: Patient - History of Present Illness Timing - onset: Other (Almost 2 weeks out from a lumbar laminectomy, she gradually since then she has had a cough productive of a minimal amount of white sputum and hoarseness without sore throat primarily. She denies fevers and is not short of breath.) Review of Systems Constitutional: denies: Fever, Chills Ears: denies: Ear pain Nose: denies: Rhinorrhea / runny nose Throat: denies: Sore throat Cardiac: denies: Chest pain / pressure Respiratory: reports: Cough. 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 HEENT: None Psych: Depression Musculoskeletal: Osteoarthritis Derm: None - Past Surgical History Past Surgical History: Yes General: Appendectomy Ortho: Other /CASING CLEANER: Hysterectomy HEENT: Tonsil/Adenoidectomy - Present Medications Home Medications: Ambulatory Orders Medication Instructions Recorded Confirmed Atorvastatin [Lipitor] 20 mg PO DAILY 11/10/14 06/25/17 Cranberry 500 mg PO BID 11/10/14 06/25/17 Escitalopram [Lexapro] 10 mg PO DAILY 11/10/14 06/25/17 Glucosamine Sulfate Dipot Chlr 500 mg PO TID 11/10/14 06/25/17 [Glucosamine] [place]-3 Fatty Acids [Fish Oil] 1,000 mg PO BID 11/10/14 06/25/17 Cholecalciferol (Vitamin D3) 1 tab ORAL DAILY 02/04/15 06/25/17 [Vitamin D-400] Multivit-Min/FA/Lycopene/Lut 1 each PO DAILY 02/04/15 06/25/17 [Centrum Silver Tablet] Verapamil [Calan] 180 mg PO DAILY 03/09/15 06/25/17 Saccharomyces Boulardii [Florastor] 1 cap PO BID 01/30/17 06/25/17 Aspirin 81 mg ORAL DAILY 05/21/17 06/25/17 Gabapentin 300 mg PO TID 06/25/17 06/25/17 Cyclobenzaprine HCl 0.5 tab PO DAILY PRN 12/03/17 12/03/17 Lisinopril 1 tab PO DAILY 12/03/17 12/03/17 cloNIDine [Catapres] 0.1 mg PO TID 12/03/17 Doxycycline Hyclate 100 mg PO BID #14 tablet 12/19/17 HYDROcod/ACETAM 5/325 [[place] 5/325] 1 tab PO Q6HR PRN 12/19/17 Ipratropium [place] [Atrovent Hfa] puffs PO BID 12/19/17 predniSONE [Deltasone] 60 mg PO DAILY 5 Days tablet 12/19/17 - Allergies Allergies/Adverse Reactions: Allergies Allergy/AdvReac Type Severity Reaction Status Date / Time Sulfa (Sulfonamide Allergy Severe Anaphylaxis Verified 12/19/17 19:05 Antibiotics) clarithromycin Allergy Unknown Verified 12/19/17 19:05 codeine Allergy Nausea Verified 12/19/17 19:05 levofloxacin Allergy Unknown Verified 12/19/17 19:05 phenazopyridine HCl * Allergy Unknown Verified 12/19/17 19:05 [From Pyridium] - Social History Does the pt smoke?: No Smoking Status: Never smoker Does the pt drink ETOH?: No Does the pt have substance abuse?: No - Immunizations Immunizations are current?: Yes - POLST Patient has POLST: No PD ED PE NORMAL - Vitals Vital signs reviewed: Yes - General General: Alert and oriented X 3, No acute distress - HEENT HEENT: PERRL, EOMI, Pharynx benign - Neck Neck: Supple, no meningeal sign, No bony TTP - Cardiac Cardiac: RRR, No murmur - Respiratory Respiratory: No respiratory distress, Other (Wheezy throughout rhonchorous at the bases) - Abdomen Abdomen: Non tender - Extremities Extremities: No edema, No calf tenderness / cord - Neuro Neuro: Alert and oriented X 3, Normal speech Results - Vitals Vitals: Vital Signs - 24 hr 12/19/17 18:33 Temperature 36.5 C Heart Rate 89 Respiratory 18 Rate Blood Pressure 117/50 L O2 Saturation 95 Oxygen O2 Source [With Activity] Room air O2 Source Room air - Labs Labs: Laboratory Tests 12/19/17 18:51 Group A Strep Rapid Negative - Rads (name of study) 2v chest Radiology: EMP read contemporaneously (NAD hiatal hernia) PD MEDICAL DECISION MAKING - ED course ED course: Seems like a COPD exacerbation, she has a history of same. She declines a breathing treatment here, "hospital breathing treatments are too strong." Departure - Departure Disposition: 01 Home, Self Care Clinical Impression: COPD (chronic obstructive pulmonary disease) Qualifiers: COPD type: unspecified COPD Qualified Code(s): J44.9 - Chronic obstructive pulmonary disease, unspecified Condition: Good Record reviewed to determine appropriate education?: Yes Instructions: COPD Dc Prescriptions: Doxycycline Hyclate 100 mg PO BID #14 tablet predniSONE [Deltasone] 60 mg PO DAILY 5 Days tablet Comments: Call your doctor to arrange a follow-up appointment, make the next available appointment. In the interim, return anytime if worse or if new symptoms develop. Drink plenty of fluids
--- NOTE | 2017-12-19 20:00 | XRAY Report ---
EXAM: CHEST RADIOGRAPHY EXAM DATE: 12/19/2017 07:50 PM. CLINICAL HISTORY: Cough wheeze. COMPARISON: 12/06/2017. TECHNIQUE: 2 views. FINDINGS: Lungs/Pleura: No focal opacities evident. No pleural effusion. No pneumothorax. Normal volumes. Mediastinum: Borderline cardiomegaly. Other: There is a moderate size hiatal hernia. IMPRESSION: 1. No acute intrathoracic plain film abnormality. 2. There is a moderate size hiatal hernia. [facility] Referring Provider Line: [phone] SITE ID: [id number]
[2017-12-19] MEDS ORDERED: predniSONE 20 MG TABLET PO STA (20:12)
[2017-12-19] MEDS ORDERED: DOXYCYCLINE 100 MG TABLET PO STA (20:12)
== END 2017-12-19 20:25 | disposition home or self-care (01) ==
LOC: ED 18:30
DX: J44.9 Chronic obstructive pulmonary disease, unspecified (principal); I10 Essential (primary) hypertension; Z79.82 Long term (current) use of aspirin
CPT/HCPCS: 71046; 87070; 87430; 99283; 99284; A9270; J7512

== ENCOUNTER 2018-01-05 12:57 | Outpatient (CLI) | payer MEDICARE ==
--- NOTE | 2018-01-05 14:22 | XRAY Report ---
TWO VIEW CHEST: 01/05/2018 CLINICAL INDICATION: Cough, shortness of breath. COMPARISON: 12/19/2017. FINDINGS: Frontal and lateral views of the chest demonstrate a normal cardiac silhouette. Hiatal hernia is stable. There is no new consolidation, effusion, or pneumothorax. IMPRESSION: STABLE HIATAL HERNIA. NO EVIDENCE OF ACUTE CARDIOPULMONARY DISEASE. TD: 01/05/2018 14:20
== END 2018-01-05 12:58 | disposition home or self-care (01) ==
LOC: DI 12:57
PROVIDERS: ATTEND Nurse Practitioner Family
DX: K44.9 Diaphragmatic hernia without obstruction or gangrene (principal); R05 Cough; R06.02 Shortness of breath
CPT/HCPCS: 71046

== ENCOUNTER 2018-01-08 14:30 | Outpatient (CLI) | payer MEDICARE | END 2018-01-08 14:31 | disposition EMS.NT | LOC: EMS 14:30 | PROVIDERS: ATTEND Surgery | DX: R25.1 Tremor, unspecified (principal) ==

== ENCOUNTER 2018-01-13 10:07 | Outpatient (CLI) | payer MEDICARE | END 2018-01-13 10:08 | disposition critical access hospital (66) | LOC: EMS 10:07 | PROVIDERS: ATTEND Surgery | DX: R06.02 Shortness of breath (principal) | CPT/HCPCS: A0425; A0427 ==

== ENCOUNTER 2018-01-13 10:46 | Emergency (ER) | payer MEDICARE ==
--- NOTE | 2018-01-13 11:10 | ED Physician Documentation ---
History of Present Illness - Stated complaint Stated Complaint: SOA - Chief complaint Chief Complaint: Resp - Additonal information Additional information: hx from pt 87 female hx COPD approx 1 m s/p lamiectomy to ED BIBA for SOA and hypoxia per EMS SOA is chronic her sats were low to mid 80s she does not use home O2 she has been using her neb BID despite worsening SOA no fever no cough no CP no leg swelling Review of Systems Constitutional: denies: Fever, Chills Cardiac: denies: Chest pain / pressure Respiratory: reports: Dyspnea. denies: Cough, Hemoptysis, Wheezing GI: denies: Abdominal Pain, Nausea Musculoskeletal: denies: Extremity pain, Extremity swelling Endocrine: denies: Easy bruising / bleeding Immunocompromised: denies: Immunocompromised PD PAST MEDICAL HISTORY - Past Medical History Cardiovascular: Hypertension, Other Respiratory: COPD Neuro: None Endocrine/Autoimmune: None GI: Diverticulitis QI SPECIALIST: None : Retention HEENT: None Psych: Depression Musculoskeletal: Osteoarthritis Derm: None - Past Surgical History Past Surgical History: Yes General: Appendectomy Ortho: Other /QI SPECIALIST: Hysterectomy HEENT: Tonsil/Adenoidectomy - Present Medications Home Medications: Ambulatory Orders Medication Instructions Recorded Confirmed Atorvastatin [Lipitor] 20 mg PO DAILY 11/10/14 06/25/17 Cranberry 500 mg PO BID 11/10/14 06/25/17 Escitalopram [Lexapro] 10 mg PO DAILY 11/10/14 06/25/17 Glucosamine Sulfate Dipot Chlr 500 mg PO TID 11/10/14 06/25/17 [Glucosamine] Palmer-3 Fatty Acids [Fish Oil] 1,000 mg PO BID 11/10/14 06/25/17 Cholecalciferol (Vitamin D3) 1 tab ORAL DAILY 02/04/15 06/25/17 [Vitamin D-400] Multivit-Min/FA/Lycopene/Lut 1 each PO DAILY 02/04/15 06/25/17 [Centrum Silver Tablet] Verapamil [Calan] 180 mg PO DAILY 03/09/15 06/25/17 Saccharomyces Boulardii [Florastor] 1 cap PO BID 01/30/17 06/25/17 Aspirin 81 mg ORAL DAILY 05/21/17 06/25/17 Gabapentin 300 mg PO TID 06/25/17 06/25/17 Cyclobenzaprine HCl 0.5 tab PO DAILY PRN 12/03/17 12/03/17 Lisinopril 1 tab PO DAILY 12/03/17 12/03/17 cloNIDine [Catapres] 0.1 mg PO TID 12/03/17 Doxycycline Hyclate 100 mg PO BID #14 tablet 12/19/17 HYDROcod/ACETAM 5/325 [[place] 5/325] 1 tab PO Q6HR PRN 12/19/17 Ipratropium [place] [Atrovent Hfa] puffs PO BID 12/19/17 predniSONE [Deltasone] 60 mg PO DAILY 5 Days tablet 12/19/17 - Allergies Allergies/Adverse Reactions: Allergies Allergy/AdvReac Type Severity Reaction Status Date / Time Sulfa (Sulfonamide Allergy Severe Anaphylaxis Verified 01/13/18 11:06 Antibiotics) clarithromycin Allergy Unknown Verified 01/13/18 11:06 codeine Allergy Nausea Verified 01/13/18 11:06 levofloxacin Allergy Unknown Verified 01/13/18 11:06 phenazopyridine HCl * Allergy Unknown Verified 01/13/18 11:06 [From Pyridium] - Social History Does the pt smoke?: No Smoking Status: Never smoker Does the pt drink ETOH?: No Does the pt have substance abuse?: No - Immunizations Immunizations are current?: Yes - POLST Patient has POLST: No PD ED PE NORMAL - Vitals Vital signs reviewed: Yes - Cardiac Cardiac: RRR - Respiratory Respiratory: Other (dec antwon no wheeze appeciated no ronchi) - Abdomen Abdomen: Soft, Non tender - Derm Derm: Normal color - Extremities Extremities: No edema - Neuro Neuro: Alert and oriented X 3 Results - Vitals Vitals: Vital Signs - 24 hr 01/13/18 01/13/18 01/13/18 10:57 11:44 12:42 Temperature 36.5 C 37 C Heart Rate 104 H 110 H 105 H Respiratory 21 20 23 Rate Blood Pressure 129/56 L 108/74 O2 Saturation 83 L 92 01/13/18 14:25 Temperature 36.8 C Heart Rate 112 H Respiratory 26 H Rate Blood Pressure 106/64 O2 Saturation 98 Oxygen O2 Source [With Activity] Room air O2 Source Oxymask Oxygen Flow Rate 2 - EKG (time done) 1105 Rate: Rate (enter#) (106) Rhythm: Sinus tachycardia [place]: Normal Intervals: Normal RI. No: Prolonged QT, Wide QRS QRS: Poor R wave progression Ischemia: Non specific changes - Labs Labs: Laboratory Tests 01/13/18 01/13/18 01/13/18 11:23 11:23 11:23 WBC 12.6 H RBC 3.85 L Hgb 12.5 Hct 37.3 MCV 96.8 MCH 32.5 H MCHC 33.6 RDW 14.3 Plt Count 224 MPV 8.0 Neut # 10.0 H Lymph # 1.4 L [place] # 1.1 H Eos # 0.0 Baso # 0.1 Absolute Nucleated RBC 0.01 Nucleated RBC % 0.1 Sodium 136 Potassium 4.7 Chloride 101 Carbon Dioxide 22 Anion Gap 13.0 BUN 36 H Creatinine 1.5 H Estimated GFR (MDRD) 33 L Glucose 152 H Calcium 9.1 Troponin I 0.93 H* B-Natriuretic Peptide 01/13/18 11:23 WBC RBC Hgb Hct MCV MCH MCHC RDW Plt Count MPV Neut # Lymph # [place] # Eos # Baso # Absolute Nucleated RBC Nucleated RBC % Sodium Potassium Chloride Carbon Dioxide Anion Gap BUN Creatinine Estimated GFR (MDRD) Glucose Calcium Troponin I B-Natriuretic Peptide 1354 H - Rads (name of study) CXR Radiology: See rad report (no acute) echo Radiology: See rad report (per verbal from tech during echo: massive R heart strain, clot in r atrium, LA LV collaspe) LE doppler Radiology: See rad report (only completed RLE due to [facility] arrival - clot from calf to inguinal region) PD MEDICAL DECISION MAKING - ED course ED course: 87 f approx 1 m post back surgery to ER with acute worsening of cough and SOA no pna on CXR tachy tachypneic hypoxic, slightly + trop very + BNP but no CHF on CXR raises concern for PE however GFR is newly 33 given heparin PE dose (rather than lovenox given recent surgery want to be able to dc) planned to admit for echo LE dopplers perhaps VQ - if absolutely no other way to rule in/out PE could have CT with modified contrast load spoke to hospitalist Dr Dalton approx 1300 - he is concerned about trop and would like to confirm PE and rule out ACS prior to admit to [facility] pt is DNR and I spoke to her re whether she would want intervention such as cath stent CABG if she had a NSTEMI and she is uncertain also has no burnt lime drawer of her own so have asa, ordered echo for wall motion abn and PE eval, VQ, antwon LE duplex echo shows no regional wall motion abn to suggest ACS but has clot in the R atria, sig R heart strain and almost complete collapse of LA and LV pt becoming more SOA and tachycardic consider TPA but she is a month post spine surgery doppler RLE shows clot all the way to the inguinal vessels - LLE not completed prior to arrival of [facility] needs emergent IR 1410 called [facility] PE team - advised pt is [place] so have to call them first - 1415 [employer] called [place] and [facility] emphasized severity of situation and need for stat emergent transfer to tertiary care with IR - [place] advised no beds at [facility] right now - [place] to call back with admit / transfer info 1425 no call back from [place] re possible transfer destinations 1430 still no call back back from [place] pt getting worse - more hypoxic and more tachypneic - changed to face mask - if continues to worsen will intubate but that will not fix the cause of her hypoxia if worsens before transfer may have to TPA even though spine surgery < 3 m is an absolute contraindication called [facility] ER directly (pt can go via ER and get to IR and then address admission location and approval after stabilized) - spoke to Dr Hernandez ER physician who accepts pt in transfer, [facility] design transferrer will contact [place] as well my continued efforts - [facility] activated 1440 awaiting call back from [place] [address] [place] [address] Sweet called back and approves the transfer to [facility] as planned pt updated on dx and plan pt transferred on O2 and heparin gtt to [facility] via [facility] Departure - Departure Disposition: 02 Transfer Acute Care Hosp Clinical Impression: DVT (deep venous thrombosis) Pulmonary emboli Qualifiers: Pulmonary embolism type: other Chronicity: acute Acute cor pulmonale presence: with acute cor pulmonale Qualified Code(s): I26.09 - Other pulmonary embolism with acute cor pulmonale Respiratory failure Qualifiers: Chronicity: acute Respiratory failure complication: hypoxia Qualified Code(s): J96.01 - Acute respiratory failure with hypoxia Discharge Date/Time: 01/13/18 15:25
[2018-01-13] MEDS: ALBUTEROL NEB 2.5 MG/3 ML INH STA ×2 (11:15→11:20)
[2018-01-13 11:31] LABS: BASOPHILS # (AUTO) 0.1 10^3/uL (0.0-0.1); BASOPHILS % (AUTO) 0.7 %; EOSINOPHILS % (AUTO) 0.1 %; HGB - HEMOGLOBIN 12.5 g/dL (12.0-16.0); LYMPHOCYTES # (AUTO) 1.4 10^3/uL (1.5-3.5); LYMPHOCYTES % (AUTO) 10.8 %; MEAN CORPUSCULAR HEMOGLOBIN 32.5 pg (27.0-31.0); MEAN CORPUSCULAR HGB CONC 33.6 g/dL (32.0-36.0); MEAN CORPUSCULAR VOLUME 96.8 fL (81.0-99.0); MONOCYTES # (AUTO) 1.1 10^3/uL (0.0-1.0); MONOCYTES % (AUTO) 8.8 %; NEUTROPHILS % (AUTO) 79.6 %; PLT - PLATELET COUNT 224 10^3/uL (130-450); RED BLOOD COUNT 3.85 10^6/uL (4.20-5.40); RED CELL DISTRIBUTION WIDTH 14.3 % (12.0-15.0); WHITE BLOOD COUNT 12.6 x10^3/uL (4.8-10.8)
[2018-01-13] MEDS ORDERED: LEVALBUTEROL 1.25 MG/3 ML NEB INH STA (11:32)
[2018-01-13 11:39] LABS: CALCIUM 9.1 mg/dL (8.5-10.3); CREATININE 1.5 mg/dL (0.4-1.0)
--- NOTE | 2018-01-13 12:18 | XRAY Report ---
EXAM: CHEST RADIOGRAPHY EXAM DATE: 01/13/2018 11:43 AM. CLINICAL HISTORY: Shortness of breath and tachycardia for 2 days. History of COPD. COMPARISON: Chest x-ray 01/05/2018. TECHNIQUE: 2 views. FINDINGS: Lungs/Pleura: No focal opacities evident. No pleural effusion. No pneumothorax. Normal volumes. Mediastinum: Heart and mediastinal contours are unremarkable. Other: Generalized thoracic kyphosis. S-shaped thoracolumbar scoliosis. Hiatal hernia. IMPRESSION: 1. Hiatal hernia. 2. No consolidation or interstitial edema evident. [facility] Referring Provider Line: [phone] SITE ID: [id number]
[2018-01-13] MEDS ORDERED: ENOXAPARIN 80 MG/0.8 ML SYRINGE SUBQ STA (12:41)
[2018-01-13] MEDS ORDERED: HEPARIN 5,000 UNIT/ML VIAL IVP ONE (12:51)
[2018-01-13] MEDS ORDERED: HEPARIN 25000UNITS/500ML (D5W) 25,000 UNIT/500 ML BAG IV SCH (13:00)
[2018-01-13] MEDS ORDERED: ASPIRIN CHEW 81 MG TABLET PO STA (13:15)
[2018-01-13 14:26] VITALS: BP 106/64
--- NOTE | 2018-01-13 15:39 | Ultrasound Report ---
RIGHT LEG VENOUS DUPLEX: 01/13/2018 CLINICAL INDICATION: Postop shortness of breath. TECHNIQUE: Real-time sonographic vascular imaging was performed by the mycology teacher through the right leg utilizing both color-flow and Doppler spectral analysis. Multiple personnel representative static images were saved for review. FINDINGS: There is extensive DVT from the right common femoral, through the superficial femoral, the popliteal, and the calf veins, with involvement of the profunda femoris vein in the thigh as well. IMPRESSION: EXTENSIVE RIGHT LEG DVT. CRITICAL RESULT: Results called to Dr. Toney in the emergency department on at 15:20 p.m. TD: 01/13/2018 15:37 MTDNorma
== END 2018-01-13 15:25 | disposition short-term general hospital (02) ==
LOC: ED 10:46
DX: I82.411 Acute embolism and thrombosis of right femoral vein (principal); I82.4Z1 Acute embolism and thrombosis of unspecified deep veins of right distal lower extremity; I82.431 Acute embolism and thrombosis of right popliteal vein; I26.09 Other pulmonary embolism with acute cor pulmonale; J96.01 Acute respiratory failure with hypoxia; J44.9 Chronic obstructive pulmonary disease, unspecified; I10 Essential (primary) hypertension; M19.90 Unspecified osteoarthritis, unspecified site; Z79.82 Long term (current) use of aspirin; Z66 Do not resuscitate
CPT/HCPCS: 36415; 71046; 80048; 83880; 84484; 85025; 93005; 93306; 93971; 94640; 96365; 96366; 99284; 99291; A9270